=== PATIENT | male | born 1945 | race Caucasian/White ===

== ENCOUNTER 2017-12-16 08:18 | Outpatient (RCR) | payer MEDICARE, OTHER ==
[2015-03-16 17:08] VITALS: Ht 177.8 cm; Wt 83.9 kg
[2017-09-23 08:23] VITALS: BP 128/77
[2017-09-23 08:30] LABS: PLATELET COUNT, AUTOMATED 128 K/uL (150-450)
--- NOTE | 2017-09-23 11:28 | RADIOLOGY IMAGING REPORT ---
FACILITY: [facility] PATIENT NAME: Paulie Oakes : 1945 MR: [id number] V: [id number] EXAM DATE: ORDERING PHYSICIAN: TANA QUINTANILLA TECHNOLOGIST: Location: [facility] [place] Patient: Paulie Oakes : 1945 Visit/Account:[id number] Date of Sevice: 09/23/2017 ABDOMEN W W/O CONTRAST Provided history: Colon cancer Additional pertinent history: none TECHNIQUE: Multi-planar and multi-sequence imaging of the abdomen was performed without and with int ravenous contrast. Contrast dose: 15 mL Multihance intravenously . Additional focused sequences: none COMPARISON STUDIES: MRI 07/24/[address] 07/17/17 FINDINGS: Lower chest: Negative Liver/biliary: There is a poorly defined area of moderate hyperenhancement in the hepatic arterial ph ase subcapsular margin of the posterior right lobe involving segment 7. This is a very similar appear ance though perhaps slightly progressive from the last MRI. In retrospect, I see no abnormal activity at this level on the PET scan. Directly anterior to this lesion, there is a nonmass-like area of hyp oenhancement and adjacent metallic artifacts that is stable from the prior MRI. Retrospect, there is mild hyper metabolic activity this location on the PET scan and are presumably appearance now is post treatment in origin. Outside of these 2 lesions, I see no additional evidence of metastatic disease in the liver currently. Pancreas: Negative Spleen: Negative Adrenal glands: Negative Kidneys/proximal ureter/retroperitoneum: Benign-appearing cysts both kidneys are unchanged from prior . One, however, in the lower pole on the left demonstrates complex features with thick internal septa tions and mild T1 hyperintensity before gadolinium. Today's study is more difficult to interpret due to breathing motion artifact but the lesion appears to be stable in size dating back to MR of 5 and therefore likely benign. A partially collapsed cystic structure projects laterally from the lower pole right kidney, stable. I t demonstrates low-level peripheral wall enhancement. Bowel/peritoneum/mesenteries: Negative Vessels: Negative Musculoskeletal/body wall: Negative Lymph nodes: negative IMPRESSION: 1. Slightly enlarging hyperenhancing lesion segment 7 right lobe of the liver with features concernin g for a metastatic lesion. 2. Stable segment 8 lesion with features suggesting benign post repair changes. 3. Complex cysts of the kidneys are defined above. Though likely benign, they warrant follow-up surve illance. Report Dictated By: Eder Dutta MD at 09/23/2017 11:01 AM Report E-Signed By: Eder Dutta MD at 09/23/2017 11:23 AM WSN:[id number]
[2017-09-23] MEDS: LIDOCAINE/SOD BICARB 8.4% SYR ID PRN (12:54)
[2017-09-23] MEDS: HEPARIN FLSH (PORT) 500 UN/5ML IVP PRN (12:55)
[2017-09-26 13:39] VITALS: BP 186/85
--- NOTE | 2017-09-26 14:16 | Oncology Note ---
EVENT DATE: September 26, 2017 DIAGNOSES 1. 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 2. Complex cyst of both kidneys. 3. Hypertension. 4. Gout. 5. Glaucoma. CHIEF COMPLAINT Patient is here today for followup of his metastatic cecal adenocarcinoma. HEMATOLOGY/ONCOLOGY HISTORY PRESENTATION Abnormal screening colonoscopy done by Dr. Damon, who found a large tumor in the right colon, suggestive of malignancy. PROCEDURE Right hemicolectomy done on March 15, 2015. PATHOLOGY Positive for invasive moderately differentiated colonic adenocarcinoma. Fifteen lymph nodes were negative for metastasis. Immuno stains for microsatellite instability were PMS2, MSH2, MSH6 and MLH1 all came back positive. Oncotype DX colon cancer assay showed a recurrence score result of 22. Oncotype DX colon cancer assay showed a recurrence score result of 22. STAGING WORKUP 1. CT of abdomen and pelvis with contrast done on March 09, 2015 showed markedly thickened cecum and ascending colon with irregularity consistent with colon cancer. There were small shotty retroperitoneal lymph nodes present. Bilateral renal cysts in addition to bilateral complex masses in both kidneys. 2. MRI of the abdomen with/without contrast done March 10, 2015 showed complex mass, lower pole of right kidney, consistent with Bosniak type III cyst. Another complex in the lower pole of the left kidney represented a Bosniak type III cyst. There was a large mass involving the cecum extending into the approximate ascending colon, consistent with history of colon cancer. TREATMENT The patient started chemotherapy with FOLFOX pending surgery on July 23, 2016. The patient had black/partial hepatectomy with intraoperative ultrasound and microwave ablation on October 22, 2016 and pathology came back positive for the segment for hepatic resection for adenocarcinoma of the colon. The patient started adjuvant chemotherapy with FOLFOX chemotherapy on December 25, 2016. The patient completed four courses of adjuvant chemotherapy with FOLFOX on February 06, 2017. The patient completed four courses of FOLFOX in adjuvant setting after his surgery on February 05, 2014. HISTORY OF PRESENT ILLNESS The patient is a 71-year-old male who was initially diagnosed with stage II (T3 N0 M0) cecal adenocarcinoma status post right hemicolectomy on March 15, 2015 with negative lymph nodes for metastasis. Oncotype DX testing of the colon mass showed recurrent score of 22. Patient decided not to take adjuvant chemotherapy. CEA during surveillance increased from 2.3 to 5.3, and PET CT scan done June 06, 2017 showed 1.3 cm hypodense, hypermetabolic lesion in the anterior aspect of the right hepatic lobe, concerning for metastasis. There was a small hypermetabolic focus of the left hilum suspicious for lymphadenopathy which could be metabolically reactive. There was also a 1.5 cm hypodense nodule in the left thyroid with SUV 2.8. Patient had partial hepatectomy with intraoperative ultrasound microwave ablation done October 22, 2016. Segment 4 of the hepatic resection did reveal the presence of adenocarcinoma consistent with colonic primary. Patient received 4 cycles of adjuvant chemotherapy of FOLFOX between December 10, 2016 through February 05, 2017. His CEA showed response to the treatment. It dropped from 5.4 to 4.6 to 3.1 and then to 3. On March 25, [address] chest, abdomen and pelvis, which came back positive for hypoattenuating area in the left lobe of the liver. So the patient had a PET scan on April 10, 2017, which showed persistent activity in the surgical bed, which is nearly equal to the preoperative metastatic activity concerning for possible metastasis of cervical inflammatory changes. Patient had a PET CT scan done on July 17, 2017, which came back negative for metastasis, but MRI of the abdomen on July 24, 2017 showed two masses which with arterial enhancing in the right lobe of the liver, the largest 2.8 cm. Given the discrepancy between the PET scan and the MRI of the abdomen, Dr Millard recommended observation with serial imaging to assess stability. Paulie presents today for follow-up. He has been doing well and denies any new complaints. He has chronic right hip pain, which is likely due to arthritis. He denies weight loss, RUQ abdominal pain, shortness of breath, back/bone pain. PAST MEDICAL HISTORY 1. Colon cancer. 2. Hypertension. 3. Gout. 4. Glaucoma. PAST SURGICAL HISTORY 1. Multiple eye surgeries for glaucoma. 2. Tonsillectomy. 3. Right hemicolectomy done on March 15, 2015. 4. Black/partial hepatectomy with intraoperative ultrasound and microwave ablation done on October 22, 2016. SOCIAL HISTORY The patient is . He has two sons. He is retired. Denies any abuse of tobacco, alcohol or drugs. FAMILY HISTORY Maternal aunt had breast cancer in her late 60s. Maternal cousin had small cell lung cancer. CURRENT MEDICATIONS 1. Multivitamins one tablet daily. 2. Betimol eye drops daily. 3. Lumigan 2.5 mL drops at bedtime. 4. Hyzaar 50/12.5 mg tablet daily. 5. Allopurinol 300 mg daily. 6. Cardura 4 mg at bedtime. 7. Verapamil SR 240 mg daily. ALLERGIES No known drug allergies. REVIEW OF SYSTEMS CONSTITUTIONAL: No appetite or weight change. No fever, chills or sweating. No recent infection. HEENT: Ears: No tinnitus or hearing problem. Nose: No nasal discharge or epistaxis. Throat: No sore throat or mouth ulcers. Eyes: No diplopia or visual changes. RESPIRATORY: The patient has cough with expectoration. CARDIOVASCULAR: No chest pain, orthopnea, or paroxysmal nocturnal dyspnea (PND) . No edema. No palpitations. GASTROINTESTINAL: He has diarrhea sometimes. GENITOURINARY: No hematuria or dysuria. MUSCULOSKELETAL: He has pain in the right leg. NEUROLOGICAL: His tingling and numbness is getting better. HEMATOLOGIC/LYMPHATIC: He is weak, tired and fatigued. No enlarged lymph nodes. SKIN: No skin rash or lumps. PSYCHIATRIC: No anxiety or depression. PHYSICAL EXAMINATION GENERAL: Looks stable. Well-developed, well-nourished, and in no acute distress. VITAL SIGNS: Blood pressure 186/85, pulse 48 per minute, respirations 16 per minute, temperature 96.2, pulse ox 93% on room air. HEENT: Head: Atraumatic. No sinus tenderness to palpation. Eyes: No icterus or conjunctivitis. Mouth and throat: No oral thrush or mucositis. NECK: Supple. No cervical or supraclavicular lymphadenopathy. LUNGS: Clear to auscultation and percussion bilaterally. HEART: Regular rate and rhythm. No gallops, murmurs, clicks or rubs. ABDOMEN: Soft and lax. No tenderness. No hepatosplenomegaly. No masses. EXTREMITIES: No cyanosis, clubbing or edema. LYMPHATICS: No peripheral lymphadenopathy. NEUROLOGICAL: Conscious, alert and oriented times three. No focal motor or sensory deficits. PSYCHIATRIC: Mood and affect appear normal. SKIN: No skin rash, bruise or purpuric eruption. DIAGNOSTIC DATA CBC showed a white count of 4.4, hemoglobin 13.9, hematocrit 39.6, platelets 128 ,000. Chem panel totally normal. CEA is 2.6, which is down from 3.1, which was down from 4.6, which was down from 5.4. PET CT scan done on July 17, 2017 was negative for metastasis or residual disease. MRI of the abdomen done on July 24, 2017 showed two enhancing masses in the right lobe of the liver , the largest 2.8 cm without enhancement, suspicious for metastasis. MRI abdomen on 09/23/2017 showed poorly defined area in segment 7 of right lobe, with very similar appearance, though perhaps slightly progressed; directly anterior is a stable area, with no additional evidence of metastatic disease. ASSESSMENT 1. Recurrent cecal adenocarcinoma. Patient was initially diagnosed with stage II (T3 N0 M0) cecal adenocarcinoma status post right hemicolectomy March 15, 2015 with negative lymph nodes for metastasis. Oncotype DX testing of the colon mass showed recurrent score of 22. Patient decided not to take adjuvant chemotherapy. CEA during surveillance increased from 2.3 to 5.3, and PET CT scan done June 06, 2017 showed 1.3 cm hypodense, hypermetabolic lesion in the anterior aspect of the right hepatic lobe, concerning for metastasis. There was a small hypermetabolic focus of the left hilum suspicious for lymphadenopathy which could be metabolically reactive. There was also a 1.5 cm hypodense nodule in the left thyroid with SUV 2.8. Patient had partial hepatectomy with intraoperative ultrasound microwave ablation done October 22, 2016. Segment 4 of the hepatic resection did reveal the presence of adenocarcinoma consistent with colonic primary. Patient received 4 cycles of adjuvant chemotherapy of FOLFOX between December 10, 2016 through February 05, 2017. His CEA showed response to the treatment. It dropped from 5.4 to 4.6 to 3.1 and currently it is 3. On March 25, [address] chest, abdomen and pelvis, which came back positive for hypoattenuating area in the left lobe of the liver. So the patient had a PET scan on April 10, 2017, which showed persistent activity in the surgical bed, which is nearly equal to the preoperative metastatic activity concerning for possible metastasis of cervical inflammatory changes. Patient had a PET CT scan done on July 17, 2017, which came back negative for metastasis, but MRI of the abdomen on July showed two masses which with arterial enhancing in the right lobe of the liver, the largest 2.8 cm. Given the discrepancy between the PET scan and the MRI of the abdomen Dr Millard opted to continue with surveillance and repeat imaging in short interval. MRI on 09/23/2017 showed similar or perhaps slightly increased area in segment 7, stable area in segment 8 and no new areas of metastatic disease. I reviewed these results with the patient and his . Given his asymptomatic nature, normal labs, decreasing CEA, and essentially similar findings on MRI, there is not definitive evidence of progression of disease. I recommended to continue with surveillance and repeat imaging in 2-3 months, to assess stability. He will return for follow-up in 2-3 months with CBC , CMP, CEA. He expressed understanding of our discussion and is agreeable with the plan. 2. Gout, on treatment. 3. Chemotherapy-induced thrombocytopenia. Current platelet count 128,000 today. I will continue to monitor. 4. Mild hypokalemia. K 3.5 today. This is likely due to anti-hypertensive meds. He will continue with SM supplement. PLAN 1. There is no definitive evidence of progression of disease; I will continue with surveillance 2. Repeat MRI abdomen in 2-3 months 3. Patient to return in 2-3 months with CBC, chemistry panel, CEA and MRI of the liver. 4. Patient is to contact us for any new concerns or complaints. 5. Continue potassium supplementation ELADIO MCCAIN MD Sep 26, 2017 14:16
[2017-10-21] MEDS: LIDOCAINE/SOD BICARB 8.4% SYR ID PRN (08:30)
[2017-10-21] MEDS: HEPARIN FLSH (PORT) 500 UN/5ML IVP PRN (08:30)
[2017-10-21 08:35] VITALS: BP 161/85
[2017-10-31 12:29] VITALS: BP 181/82
--- NOTE | 2017-10-31 13:04 | ONC Progress Note - NP.Halsey ---
Patient History Date of Service Oct 31, 2017 Reason For Visit/HPI Patient is seen in the clinic today for concern of sinus congestion, cough and possible fever with night sweats over the last 5 days. Patient's blood pressure is elevated today but he has been taking Robitussin cough syrup. His abdomen is tender thought to be related from all the coughing. His is concerned that he possibly is getting pneumonia. He is more weak and fatigued over the last 5 days. He denies any diarrhea or constipation. He has no shortness of breath. She was unable to get into primary care provider prior to the holidays and has recently been seen in the clinic for follow-up of his colon cancer with liver metastasis. Problem List (1) Pneumonia (2) Chemotherapy-induced nausea (3) Hypokalemia (4) Metastatic colon cancer to liver (5) Cancer of right colon Oncology History DIAGNOSES 1. 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 2. Complex cyst of both kidneys. 3. Hypertension. 4. Gout. 5. Glaucoma. HEMATOLOGY/ONCOLOGY HISTORY PRESENTATION Abnormal screening colonoscopy done by Dr. Garcia, who found a large tumor in the right colon, suggestive of malignancy. PROCEDURE Right hemicolectomy done on March 15, 2015. PATHOLOGY Positive for invasive moderately differentiated colonic adenocarcinoma. Fifteen lymph nodes were negative for metastasis. Immuno stains for microsatellite instability were PMS2, MSH2, MSH6 and MLH1 all came back positive. Oncotype DX colon cancer assay showed a recurrence score result of 22. Oncotype DX colon cancer assay showed a recurrence score result of 22. STAGING WORKUP 1. CT of abdomen and pelvis with contrast done on March 09, 2015 showed markedly thickened cecum and ascending colon with irregularity consistent with colon cancer. There were small shotty retroperitoneal lymph nodes present. Bilateral renal cysts in addition to bilateral complex masses in both kidneys. 2. MRI of the abdomen with/without contrast done March 10, 2015 showed complex mass, lower pole of right kidney, consistent with Bosniak type III cyst. Another complex in the lower pole of the left kidney represented a Bosniak type III cyst. There was a large mass involving the cecum extending into the approximate ascending colon, consistent with history of colon cancer. TREATMENT The patient started chemotherapy with FOLFOX pending surgery on July 23, 2016. The patient had black/partial hepatectomy with intraoperative ultrasound and microwave ablation on October 22, 2016 and pathology came back positive for the segment for hepatic resection for adenocarcinoma of the colon. The patient started adjuvant chemotherapy with FOLFOX chemotherapy on December 25, 2016. The patient completed four courses of adjuvant chemotherapy with FOLFOX on February 06, 2017. The patient completed four courses of FOLFOX in adjuvant setting after his surgery on February 05, 2014. Medical History Family History: FH: CVA (cerebrovascular accident) MOTHER, , Age:90 FH: diabetes mellitus FATHER, , Age:77 FH: heart disease FATHER, , Age:77 FH: mitral valve repair MOTHER, , Age:90 Psychosocial History Smoking History: Yes (SMOKED 2 PPD FOR 20 YEARS. QUIT 1977) Smoking Status: Former Smoker Exposure to Second Hand Smoke?: Yes (IN THE PAST. NONE NOW) Medications and Allergies Active Scripts Levofloxacin 500 Mg Tab (LEVAQUIN 500 MG TAB) 500 Mg Tablet, 500 MG PO DAILY, # 5 TAB Prov:TANA QUINTANILLAP-BC, ONC 10/31/17 Fluticasone Prop 50 Mcg Ns (FLONASE 50 MCG NS) 16 Gm Francis.susp, 2 SPRAYS NA QDAY for 30 Days, #3 BOT 3 Refills Prov:NORRIS MILLER JR, MD 10/15/17 Potassium Chloride (Potassium Chloride) 20 Meq Tablet.er, 20 MEQ PO DAILY, #60 TAB 6 Refills Prov:TANA QUINTANILLA MIXING MACHINE OPERATOR-BC, ONC 08/22/17 Losartan Potassium (LOSARTAN POTASSIUM) 50 Mg Tablet, 50 MG PO QDAY, #90 TAB 2 Refills Prov:CHYNA GARCIA MD 06/17/17 Reported Medications Oxygen (OXYGEN) Inha, 2 L INH HS, L 05/16/17 Timolol Maleate/Pf (TIMOPTIC 0.25% OCUDOSE DROP) 1 Each Droperette, 1 EACH OP Left eye only 05/16/17 Ibuprofen (IBUPROFEN) 200 Mg Capsule, 1-2 CAP PO Q6H Y for PAIN/HEADACHE, CAPSULE 03/08/16 Bimatoprost (LUMIGAN) 2.5 Ml Drops, 2.5 ML OP QHS 03/02/15 Allopurinol (ZYLOPRIM) 300 Mg Tablet, 300 MG PO QDAY, TAB TAKE 1 TABLET BY MOUTH EVERY DAY 03/02/15 Doxazosin Mesylate (CARDURA) 4 Mg Tablet, 4 MG PO QHS 03/02/15 Verapamil Hcl (CALAN SR) 240 Mg Tablet.er, 240 MG PO HS 03/02/15 Allergies: Coded Allergies: No Known Drug Allergies (Verified , 03/02/15) Review of System/Physical Exam Review of Systems All Systems Reviewed/Normal: Yes, Except as Noted Constitutional: Positive for Appetite/Weight Change (reports weight gain) Respiratory: Positive for Cough, Positive for Expectoration, Positive for Wheezing HEENT: Nasal Discharge (thick colored discharge with nasal congestion), Sore Throat Hematologic: Positive for Fatigue Physical Exam Vital Signs Temperature: 96.9 Pulse: 53 BP Systolic: 181 BP Diastolic: 82 Respiratory Rate: 16 O2 SAT: 91 O2 Delivery: Room Air Height (inches) 70.00 Weight lb: 178 Weight oz: 4.0 Weight Kg (Ugo): [id number] Pain: 0 ECOG Score: 1 General: Stable, Well Developed, Well Nourished, Not In Acute Distress HEENT: No Trauma, No Icterus, No Mucositis, Sinus Tenderness (maxillary tenderness with palpation), Other (posterior pharynx with mild erythema) Heart: Regular Rate, Regular Rhythm Abdomen: Soft and Nontender, No Hepatosplenomegaly Extremities: No Cyanosis, No Edema Lymphadenopathy: No Cervical, No Subclavicular Psychiatric: Mood appears normal, Affect appears normal Skin: No Skin Rashes, No Bruising, No Purpura Diagnostic Studies Diagnostic Studies Laboratory Laboratory Tests 09/23/17 08:20 Laboratory Tests 09/23/17 08:20: White Blood Count 4.4, Red Blood Count 4.16, Hemoglobin 13.9, Hematocrit 39.6, Mean Corpuscular Volume 95.3, Mean Corpuscular Hemoglobin 33.6, Mean Corpuscular Hemoglobin Concent 35.2, Red Cell Distribution Width 13.6, Platelet Count 128, Mean Platelet Volume 9.3, Neutrophils (%) (Auto) 66.6, Lymphocytes (% ) (Auto) 23.5, Monocytes (%) (Auto) 7.7, Eosinophils (%) (Auto) 1.4, Basophils ( %) (Auto) 0.8, Nucleated RBC Relative Count (auto) 0.1, Neutrophils # (Auto) 2.9 , Lymphocytes # (Auto) 1.0, Monocytes # (Auto) 0.3, Eosinophils # (Auto) 0.1, Basophils # (Auto) 0.0, Nucleated RBC Absolute Count (auto) 0.00, Sodium Level 142, Potassium Level 3.5, Chloride Level 107, Carbon Dioxide Level 25, Blood Urea Nitrogen 13, Creatinine 0.90, Glomerular Filtration Rate Calc > 60.0, Random Glucose 114, Calcium Level 9.1, Total Bilirubin 0.9, Aspartate Amino Transf (AST/SGOT) 27, Alanine Aminotransferase (ALT/SGPT) 32, Alkaline Phosphatase 111, Total Protein 6.6, Albumin 3.5, Carcinoembryonic Antigen 2.6 Assessment and Plan Assessment & Plan Patient is seen in the clinic today for upper respiratory infection with a prior history of pneumonia and chemotherapy. Patient initially started with a sore throat and sinus congestion and now has developed a cough, wheezing and night sweats. He has increased fatigue and generally does not feel well. Patient was offered to have a chest x-ray done today but would rather not do it at this time. He will be started on Levaquin 500 mg daily 5 days and if no improvement will follow up in the clinic and a chest x-ray will be completed at that time. Patient and spouse agreed to the plan of care. Copied from previous dictation 1. Recurrent cecal adenocarcinoma. Patient was initially diagnosed with stage II (T3 N0 M0) cecal adenocarcinoma status post right hemicolectomy March 15, 2015 with negative lymph nodes for metastasis. Oncotype DX testing of the colon mass showed recurrent score of 22. Patient decided not to take adjuvant chemotherapy. CEA during surveillance increased from 2.3 to 5.3, and PET CT scan done June 06, 2017 showed 1.3 cm hypodense, hypermetabolic lesion in the anterior aspect of the right hepatic lobe, concerning for metastasis. There was a small hypermetabolic focus of the left hilum suspicious for lymphadenopathy which could be metabolically reactive. There was also a 1.5 cm hypodense nodule in the left thyroid with SUV 2.8. Patient had partial hepatectomy with intraoperative ultrasound microwave ablation done October 22, 2016. Segment 4 of the hepatic resection did reveal the presence of adenocarcinoma consistent with colonic primary. Patient received 4 cycles of adjuvant chemotherapy of FOLFOX between December 10, 2016 through February 05, 2017. His CEA showed response to the treatment. It dropped from 5.4 to 4.6 to 3.1 and currently it is 3. On March 25, [address] chest, abdomen and pelvis, which came back positive for hypoattenuating area in the left lobe of the liver. So the patient had a PET scan on April 10, 2017, which showed persistent activity in the surgical bed, which is nearly equal to the preoperative metastatic activity concerning for possible metastasis of cervical inflammatory changes. Patient had a PET CT scan done on July 17, 2017, which came back negative for metastasis, but MRI of the abdomen on July showed two masses which with arterial enhancing in the right lobe of the liver, the largest 2.8 cm. Given the discrepancy between the PET scan and the MRI of the abdomen Dr Millard opted to continue with surveillance and repeat imaging in short interval. MRI on 09/23/2017 showed similar or perhaps slightly increased area in segment 7, stable area in segment 8 and no new areas of metastatic disease. I reviewed these results with the patient and his . Given his asymptomatic nature, normal labs, decreasing CEA, and essentially similar findings on MRI, there is not definitive evidence of progression of disease. I recommended to continue with surveillance and repeat imaging in 2-3 months, to assess stability. He will return for follow-up in 2-3 months with CBC , CMP, CEA. He expressed understanding of our discussion and is agreeable with the plan. 2. Gout, on treatment. 3. Chemotherapy-induced thrombocytopenia. Current platelet count 128,000 today. I will continue to monitor. 4. Mild hypokalemia. K 3.5 today. This is likely due to anti-hypertensive meds. He will continue with SM supplement. PLAN 1. There is no definitive evidence of progression of disease; I will continue with surveillance 2. Repeat MRI abdomen in 2-3 months 3. Patient to return in 2-3 months with CBC, chemistry panel, CEA and MRI of the liver. 4. Patient is to contact us for any new concerns or complaints. 5. Continue potassium supplementation I personally spent a total of [] minutes. Of that [] minutes was counseling/ coordination of patient's care. See my note above for details. TANA QUINTANILLA MIXING MACHINE OPERATOR-BC, ONC Oct 31, 2017 13:04
[2017-11-18 08:39] VITALS: BP 183/93
[2017-11-18] MEDS: HEPARIN FLSH (PORT) 500 UN/5ML IVP PRN (08:51)
[2017-11-18] MEDS: LIDOCAINE/SOD BICARB 8.4% SYR ID PRN (08:53)
[~2017-12-16] VITALS: Ht 177.8 cm; Wt 83.9 kg
[~2017-12-16 08:18] MED LIST: ALLO-119 PO; ALLOPURINOL; ALTEPLASE RECOMB 2 MG VIAL IVP PRN; BACL-1 PO; BENICAR HCT; BIMA2.5D5 OP; CALAN; CARDURA; CEFU500T10 PO; CORED RIGHT EAR; DEXTROSE 5%(*) 100 ML BAG 100 ML IVPB PRN; DIPH-911 PO; DOXA4TAB57 PO; DOXA4TAB58 PO; DOXA8TAB11 PO; FLUT16SP19; GADOBENATE 529MG/1ML 15ML VIAL IVP ONE; GLAUCOMA EYE DROPS; IBUP200C71 PO; INDO25OR3 PO; KET10 PO; KETO5DRO50 OP; LEVO-85 PO; LEVO500T83 PO; LEVO750T44 PO; LOR5/325 PO; LORA-1455 PO; LOSA-32 PO; LOSA100T67 PO; LOSA50TA72 PO; METR-1 PO; MULT1TAB64 PO; NS(*) 0.9% 100 ML BAG 100 ML IVPB PRN; NS(*) 0.9% 500 ML BAG 500 ML IV PRN; ONDA8TAB91 PO; OXYGENHOME INH; POTA10CA40 PO; POTA20TA10 PO; PRED15SO5 OU; PRED5DRO34 OP; TIMO1DRO8 OP; TIMO5DRO3 OP; VERA240T84 PO; WATER STERILE 10 ML VIAL IVP PRN; [UNRECOGNIZED DRUG - CODE] GT
[2017-12-16] MEDS: HEPARIN FLSH (PORT) 500 UN/5ML IVP PRN (08:31)
[2017-12-16] MEDS: LIDOCAINE/SOD BICARB 8.4% SYR ID PRN (08:32)
[2017-12-16 08:50] LABS: PLATELET COUNT, AUTOMATED 99 K/uL (150-450)
[2017-12-16] MEDS ORDERED: GADOBENATE 529MG/1ML 15ML VIAL IVP ONE (09:18)
[2017-12-16] MEDS ORDERED: NS 0.9% 20 ML SDV 40 ML ONE (09:18)
[2017-12-16 10:53] VITALS: BP 118/82
--- NOTE | 2017-12-16 15:32 | RADIOLOGY IMAGING REPORT ---
FACILITY: [facility] - [place] PATIENT NAME: Paulie Oakes : 1945 MR: [id number] V: [id number] EXAM DATE: ORDERING PHYSICIAN: TANA QUINTANILLA TECHNOLOGIST: Location: [facility] Patient: Paulie Oakes : 1945 Visit/Account:[id number] Date of Sevice: 12/16/2017 ABDOMEN MR W W/O CONTRAST HISTORY: Colon cancer ADDITIONAL HISTORY: None. TECHNIQUE: TECHNIQUE: Multiplanar multisequence magnetic resonance imaging of the abdomen with and without intravenous contrast. CONTRAST: 15 mL of MultiHance COMPARISON: September 23, 2017 FINDINGS: Visualized lung bases: Small amount linear stranding in the right lower lobe which may represent scar ring or atelectasis Liver: Again noted is a poorly defined area of moderate enhancement seen in the arterial phase in the subcapsular portion posterior right lobe the liver involving segment seven. Within the limitations of the motion artifact this appears to be relatively unchanged in size. There is a small adjacent sa tellite lesion with contrast enhancement also appears relatively unchanged. Along the anterior aspec t of the right lobe is the area of hypointensity with adjacent metallic artifacts stable from the aparna or MR likely posttreatment in origin. No new hepatic lesions are seen. Gallbladder: Cholecystectomy Bile ducts: Nondistended and unremarkable. Spleen: Negative. Adrenal glands: Negative. Pancreas: Extremely atrophic Kidneys: Bilateral renal cysts are again seen. The partially collapsed cyst along the inferior later al aspect of the right kidney with mild enhancement of the wall is relatively unchanged in size. The complex cystic mass lower pole of the left kidney is also relatively unchanged in size given the zamora itation of respiratory motion. Some are to the prior examination a thick internal septations and mil d T2 hyperintensity prior to contrast administration. Vessels/spaces/nodes: No bulky adenopathy or ascities. Visualized GI: Grossly unremarkable. Bones/soft tissues: Unremarkable. IMPRESSION: The poorly defined area of moderate enhancement in the subcapsular posterior right lobe the liver wit h small solid lesion are unchanged in size when compared to the prior study although still concerning for metastases Probable postoperative changes in the anterior right lobe the liver Bilateral renal cysts some which appear complex appear relatively unchanged when compared the prior s tudy given the limitations of respiratory motion. Continued follow-up however recommended Small amount linear stranding in the right lower lobe may represent scarring or atelectasis Report Dictated By: Micki Barahona MD at 12/16/2017 1:52 PM Report E-Signed By: Micki Barahona MD at 12/16/2017 3:27 PM CIARAN:CYNTHIA
== END 2017-12-22 ==
LOC: SPU 08:18
PROVIDERS: ATTEND Nurse Practitioner Family
DX: Z85.038 Personal history of other malignant neoplasm of large intestine (principal); Z85.05 Personal history of malignant neoplasm of liver; M10.9 Gout, unspecified; D69.59 Other secondary thrombocytopenia; E87.6 Hypokalemia; I10 Essential (primary) hypertension; Z79.899 Other long term (current) drug therapy; R53.1 Weakness; R53.83 Other fatigue; R05 Cough; Z92.21 Personal history of antineoplastic chemotherapy; N28.1 Cyst of kidney, acquired; J06.9 Acute upper respiratory infection, unspecified; Z90.49 Acquired absence of other specified parts of digestive tract; R91.8 Other nonspecific abnormal finding of lung field
CPT/HCPCS: 36591; 74183; 82378; 85025; 96523; A9577; G0463; J1642; J7050; 82040; 82247; 82310; 82374; 82435; 82565; 82947; 84075; 84132; 84155; 84295; 84450; 84460; 84520; 99212

== ENCOUNTER → 2018-02-04 | Outpatient (CLI) | payer MEDICARE, OTHER ==
[2015-03-16 17:08] VITALS: BMI 23.2
[~2018-02-04] MED LIST changes: -ALTEPLASE RECOMB 2 MG VIAL IVP PRN; -DEXTROSE 5%(*) 100 ML BAG 100 ML IVPB PRN; -GADOBENATE 529MG/1ML 15ML VIAL IVP ONE; -NS(*) 0.9% 100 ML BAG 100 ML IVPB PRN; -NS(*) 0.9% 500 ML BAG 500 ML IV PRN; +TRIA1CAP81 PO; -WATER STERILE 10 ML VIAL IVP PRN
[2018-02-04 17:00] LABS: PLATELET COUNT, AUTOMATED 165 K/uL (150-450)
--- NOTE | 2018-02-04 17:21 | EKG ---
FACILITY: [facility] PATIENT NAME: RUBENS COURTNEY : [id number] MR: [id number] V: [id number] EXAM DATE: ORDERING PHYSICIAN: RAY GRIMM TECHNOLOGIST: DANIELLE Miranda Reason : LOW PULSE Blood Pressure : / mmHG Vent. Rate : 042 BPM Atrial Rate : 042 BPM P-R Int : 190 ms QRS Dur : 160 ms QT Int : 500 ms P-R-T Axes : -02 016 004 degrees QTc Int : 417 ms Marked sinus bradycardia Right bundle branch block Abnormal ECG When compared with ECG of 09-MAR-2015 14:14, premature atrial complexes are no longer present Referred By: Confirmed By:
== END ==
LOC: LAB 16:38
PROVIDERS: ATTEND Internal Medicine
DX: R00.1 Bradycardia, unspecified (principal); I45.10 Unspecified right bundle-branch block; R94.31 Abnormal electrocardiogram [ECG] [EKG]; I10 Essential (primary) hypertension; E87.6 Hypokalemia; C18.2 Malignant neoplasm of ascending colon; R39.198 Other difficulties with micturition
CPT/HCPCS: 36415; 81001; 82040; 82247; 82310; 82374; 82435; 82565; 82947; 83735; 84075; 84132; 84155; 84295; 84443; 84450; 84460; 84520; 85025

== ENCOUNTER → 2018-03-10 | Outpatient (CLI) | payer MEDICARE, OTHER ==
[2015-03-16 17:08] VITALS: BMI 23.2
== END ==
LOC: LAB 07:44
PROVIDERS: ATTEND Internal Medicine
DX: I10 Essential (primary) hypertension (principal)
CPT/HCPCS: 36415; 82310; 82374; 82435; 82565; 82947; 84132; 84295; 84520

== ENCOUNTER 2018-03-31 08:10 | Outpatient (RCR) | payer MEDICARE, OTHER ==
[2015-03-16 17:08] VITALS: Wt 83.9 kg
[2018-01-03 10:30] VITALS: BP 135/76
--- NOTE | 2018-01-03 17:36 | ONCOLOGY FOLLOW UP NOTE ---
EVENT DATE: January 03, 2018 DIAGNOSES 1. 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 2. Complex cyst of both kidneys. 3. Hypertension. 4. Gout. 5. Glaucoma. CHIEF COMPLAINT Patient is here today for followup of his metastatic cecal adenocarcinoma. CHIEF COMPLAINT Patient is here today for followup of his recurrent metastatic colon cancer. ONCOLOGY HISTORY The patient is a 71-year-old male. The patient is doing fine currently. He has gained some weight. He still has sweating. He has also cough and runny nose, and he has hiccups lately. The patient has been evaluated at the [facility] [place] for his recurrent colon cancer and he is under evaluation currently. He was found to have a mass in the pancreas lately, and the patient is going to have EUS for that mass soon as well as repeat MRI and biopsy of the liver with marker placement. PRESENTATION Abnormal screening colonoscopy done by Dr. Damon, who found a large tumor in the right colon, suggestive of malignancy. PROCEDURE Right hemicolectomy done on March 15, 2015. PATHOLOGY Positive for invasive moderately differentiated colonic adenocarcinoma. Fifteen lymph nodes were negative for metastasis. Immuno stains for microsatellite instability were PMS2, MSH2, MSH6 and MLH1 all came back positive. Oncotype DX colon cancer assay showed a recurrence score result of 22. Oncotype DX colon cancer assay showed a recurrence score result of 22. STAGING WORKUP 1. CT of abdomen and pelvis with contrast done on March 09, 2015 showed markedly thickened cecum and ascending colon with irregularity consistent with colon cancer. There were small shotty retroperitoneal lymph nodes present. Bilateral renal cysts in addition to bilateral complex masses in both kidneys. 2. MRI of the abdomen with/without contrast done March 10, 2015 showed complex mass, lower pole of right kidney, consistent with Bosniak type III cyst. Another complex in the lower pole of the left kidney represented a Bosniak type III cyst. There was a large mass involving the cecum extending into the approximate ascending colon, consistent with history of colon cancer. TREATMENT The patient started chemotherapy with FOLFOX pending surgery on July 23, 2016. The patient had black/partial hepatectomy with intraoperative ultrasound and microwave ablation on October 22, 2016 and pathology came back positive for the segment for hepatic resection for adenocarcinoma of the colon. The patient started adjuvant chemotherapy with FOLFOX chemotherapy on December 25, 2016. The patient completed four courses of adjuvant chemotherapy with FOLFOX on February 06, 2017. The patient completed four courses of FOLFOX in adjuvant setting after his surgery on February 05, 2014. HISTORY OF PRESENT ILLNESS Patient is here today for followup of his recurrent metastatic colon cancer. He is doing fine currently, except for cough with expectoration and occasional fatigue. PAST MEDICAL HISTORY 1. Colon cancer. 2. Hypertension. 3. Gout. 4. Glaucoma. PAST SURGICAL HISTORY 1. Multiple eye surgeries for glaucoma. 2. Tonsillectomy. 3. Right hemicolectomy done on March 15, 2015. 4. Black/partial hepatectomy with intraoperative ultrasound and microwave ablation done on October 22, 2016. SOCIAL HISTORY The patient is . He has two sons. He is retired. Denies any abuse of tobacco, alcohol or drugs. FAMILY HISTORY Maternal aunt had breast cancer in her late 60s. Maternal cousin had small cell lung cancer. CURRENT MEDICATIONS 1. Multivitamins one tablet daily. 2. Betimol eye drops daily. 3. Lumigan 2.5 mL drops at bedtime. 4. Hyzaar 50/12.5 mg tablet daily. 5. Allopurinol 300 mg daily. 6. Cardura 4 mg at bedtime. 7. Verapamil SR 240 mg daily. ALLERGIES No known drug allergies. REVIEW OF SYSTEMS CONSTITUTIONAL: No appetite or weight change. No fever, chills or sweating. No recent infection. HEENT: Ears: No tinnitus or hearing problem. Nose: No nasal discharge or epistaxis. Throat: No sore throat or mouth ulcers. Eyes: No diplopia or visual changes. RESPIRATORY: The patient has cough with expectoration. CARDIOVASCULAR: No chest pain, orthopnea, or paroxysmal nocturnal dyspnea (PND) . No edema. No palpitations. GASTROINTESTINAL: He has diarrhea sometimes. GENITOURINARY: No hematuria or dysuria. MUSCULOSKELETAL: He has pain in the right leg. NEUROLOGICAL: His tingling and numbness is getting better. HEMATOLOGIC/LYMPHATIC: He has occasional fatigue. No enlarged lymph nodes. SKIN: No skin rash or lumps. PSYCHIATRIC: No anxiety or depression. PHYSICAL EXAMINATION GENERAL: Looks stable. Well-developed, well-nourished, and in no acute distress. VITAL SIGNS: Blood pressure 135/76, pulse 61 per minute, respirations 16 per minute, temperature 96.4, pulse ox 93% on room air. HEENT: Head: Atraumatic. No sinus tenderness to palpation. Eyes: No icterus or conjunctivitis. Mouth and throat: No oral thrush or mucositis. NECK: Supple. No cervical or supraclavicular lymphadenopathy. LUNGS: Clear to auscultation and percussion bilaterally. HEART: Regular rate and rhythm. No gallops, murmurs, clicks or rubs. ABDOMEN: Soft and lax. No tenderness. No hepatosplenomegaly. No masses. EXTREMITIES: No cyanosis, clubbing or edema. LYMPHATICS: No peripheral lymphadenopathy. NEUROLOGICAL: Conscious, alert and oriented times three. No focal motor or sensory deficits. PSYCHIATRIC: Mood and affect appear normal. SKIN: No skin rash, bruise or purpuric eruption. DIAGNOSTIC DATA CBC showed a white count of 4.6, hemoglobin 13.6, hematocrit 39, platelets 99, 000. Chem panel totally normal except blood sugar 118. CEA is 4.6, which is up from 2.6. MRI done on December 16, 2017 showed the poorly defined area in the right lobe of the liver is stable in size, but still concerning for metastasis. ASSESSMENT 1. Recurrent cecal adenocarcinoma. Patient was initially diagnosed with stage II (T3 N0 M0) cecal adenocarcinoma, status post right hemicolectomy March 15, 2015 with negative lymph nodes for metastasis. Oncotype DX testing of the mass showed recurrent score of 22. Patient decided not to take adjuvant chemotherapy. CEA during surveillance increased from 2.3 to 5.3, and PET/CT scan done June 06, 2017 showed 1.3 cm hypodense, hypermetabolic lesion in the anterior aspect of the right hepatic lobe, concerning for metastasis. There was a small hypermetabolic focus in the left hilum suspicious for lymphadenopathy which could be metabolically reactive. There was a 1.5 cm hypodense nodule in the left thyroid with SUV 2.8. Patient had partial hepatectomy with intraoperative ultrasound microwave ablation done October 22, 2016. Segment 4 of the hepatic resection did reveal the presence of adenocarcinoma consistent with colonic primary. Patient received 4 cycles of adjuvant chemotherapy with FOLFOX between December 10, 2016 through February 05, 2017. His CEA showed response to the treatment. It dropped from 5.4 to 4.6 to 3.1, to 3 to 2.6. His current CEA is 4.6, but his MRI of the abdomen now showed stable suspicious lesion in the right lobe of the liver, and for this reason I am planning to see him again in three months with another MRI of the abdomen and repeat CEA and CBC and chem panel at that time. If there is any evidence of progression then we will consider PET scan and further treatment at that time. Even if the suspicious area in the right lobe of the liver is metastatic it is currently inactive and I am planning to treat him whenever this mass is active again in the future. I explained that to the patient and his and they are agreeable with the plan of management. 2. Gout, on treatment. 3. Chemotherapy-induced thrombocytopenia. Current platelet count 99,000, which is stable. We will continue to monitor. PLAN 1. Continue followup. 2. Patient to return in three months with CBC, chem panel, CEA and MRI of the abdomen and pelvis.. 3. Patient is to contact us for any new concerns or complaints. STEFAND
[2018-01-14 10:05] VITALS: BP 133/77
[2018-01-14] MEDS: LIDOCAINE/SOD BICARB 8.4% SYR ID PRN (10:10)
[2018-01-14] MEDS: HEPARIN FLSH (PORT) 500 UN/5ML IVP PRN (10:11)
[2018-02-18 10:12] VITALS: BP 125/68
[2018-02-18] MEDS: HEPARIN FLSH (PORT) 500 UN/5ML IVP PRN (10:12)
[2018-02-18] MEDS: LIDOCAINE/SOD BICARB 8.4% SYR ID PRN (10:12)
[2018-03-17 08:53] VITALS: BP 170/84
[2018-03-17] MEDS: LIDOCAINE/SOD BICARB 8.4% SYR ID PRN (08:57)
[2018-03-17] MEDS: HEPARIN FLSH (PORT) 500 UN/5ML IVP PRN (08:57)
[2018-03-17 09:03] VITALS: BP 153/97
[~2018-03-31 08:10] MED LIST changes: +ALTEPLASE RECOMB 2 MG VIAL IVP PRN; +DEXTROSE 5%(*) 100 ML BAG 100 ML IVPB PRN; +NS(*) 0.9% 100 ML BAG 100 ML IVPB PRN; +NS(*) 0.9% 500 ML BAG 500 ML IV PRN; +WATER STERILE 10 ML VIAL IVP PRN
[2018-03-31 08:17] VITALS: BP 120/71
[2018-03-31] MEDS: HEPARIN FLSH (PORT) 500 UN/5ML IVP PRN (08:35)
[2018-03-31] MEDS: LIDOCAINE/SOD BICARB 8.4% SYR ID PRN (08:35)
[2018-03-31] MEDS ORDERED: GADOBENATE 529MG/1ML 15ML VIAL IVP ONE (08:55)
[2018-03-31] MEDS ORDERED: NS 0.9% 20 ML SDV 60 ML ONE (08:56)
[2018-03-31 08:58] LABS: PLATELET COUNT, AUTOMATED 117 K/uL (150-450)
--- NOTE | 2018-03-31 15:08 | RADIOLOGY IMAGING REPORT ---
FACILITY: [facility] PATIENT NAME: Paulie Oakes : 1945 MR: [id number] V: [id number] EXAM DATE: ORDERING PHYSICIAN: ANTONIO ROBLERO TECHNOLOGIST: Location: [facility] - [place] Patient: Paulie Oakes : 1945 Visit/Account:[id number] Date of Sevice: 03/31/2018 EXAMINATION: MR abdomen without and with IV contrast MR pelvis without and with IV contrast HISTORY: Follow-up colon cancer, liver lesion. Technique: Multiplanar, multisequence MR images of the abdomen and pelvis were obtained without and w ith IV contrast. Contrast: 15 mL of IV Multihance. COMPARISON: MR abdomen without and with contrast 12/16/2017 and 09/23/2017. PET/CT 07/17/2017 CT chest/abdomen/pelvis 03/25/2017. FINDINGS: MR abdomen: Liver: Normal hepatic size and morphology. Stable postsurgical changes in segment VIII of the liver for prior metastasis resection with some localized susceptibility artifact. No abnormal enhancement i n this region to suggest tumor recurrence. There is a persistent ill-defined region of arterial hyperenhancement in segment VII of the right hep atic lobe posteriorly which remains indeterminate. This measures approximately 3.8 x 3.1 cm and is wi thout definite change from the prior MRI exams of 12/16/2017 and 09/23/2017. No focal FDG uptake is not ed in this area on the prior PET/CT of 07/17/2017. Small adjacent satellite lesion along the subcapsula r aspect of the liver just anterior to the dominant lesion also appears grossly stable, measuring victor m roximately 1 cm. This is best visualized on the diffusion-weighted images. No other new focal liver l esion. The hepatic veins and portal veins are patent. Gallbladder and bile ducts: Cholecystectomy. No bile duct dilatation. Spleen: Negative. Pancreas: Mild diffuse parenchymal atrophy. Several subcentimeter cystic foci appear stable. Adrenal glands: Negative. Kidneys: Both kidneys are negative for hydronephrosis. Bilateral renal cysts appear stable, includin g complicated cysts along the lower pole of both kidneys. Bowel and peritoneum: Partial resection of the right colon. The visualized portions of the small bow el and colon are normal in caliber. Extensive colonic diverticulosis along the remaining colon. No ab dominal ascites. Lymph node assessment: Negative. Vessels: The abdominal aorta and IVC are patent and normal in caliber. Mild scattered atheroscleroti c plaque. Musculoskeletal: Negative. Body wall: Negative. Lung bases: Negative. MR pelvis: Bowel and peritoneum: Pelvic segments of the small bowel and colon are normal in caliber. Extensive c olonic diverticulosis along the sigmoid colon. No pelvic free fluid. Pelvic structures: Mild prostatic enlargement. The urinary bladder is unremarkable. Vessels: Negative. Pelvic lymph node assessment: Negative. Musculoskeletal/body wall: Small fat-containing right inguinal hernia. Advanced chronic degenerative changes at the right hip. No suspicious focal osseous lesions. IMPRESSION: 1. Stable MR appearance of the liver. A poorly defined region of arterial hyperenhancement in the rig ht hepatic lobe posteriorly appears grossly stable, with a small adjacent satellite lesion. These rem ain indeterminate. Stable postsurgical changes in the anterior right lobe of the liver. No evidence o f any new liver mass. 2. Prior right colonic resection. The remaining small bowel and colon are normal in caliber. Extensiv e colonic diverticulosis. 3. No other evidence of new metastatic disease in the abdomen or pelvis. 4. Cholecystectomy. 5. Stable bilateral renal cysts, including complicated cysts along the lower pole of both kidneys. 6. Small fat-containing right inguinal hernia. Report Dictated By: Julien Sanford MD at 03/31/2018 2:37 PM Report E-Signed By: Julien Sanford MD at 03/31/2018 3:04 PM WSN:[id number]
--- NOTE | 2018-03-31 15:09 | RADIOLOGY IMAGING REPORT ---
[place] [facility] [place] NAME: aPulie Oakes : 1945 MR: [id number] V: [id number] EXAM DATE: ORDERING PHYSICIAN: ANTONIO ROBLERO TECHNOLOGIST: Location: [facility] Patient: Paulie Oakes : 1945 Visit/Account:[id number] Date of Sevice: 03/31/2018 EXAMINATION: MR abdomen without and with IV contrast MR pelvis without and with IV contrast HISTORY: Follow-up colon cancer, liver lesion. Technique: Multiplanar, multisequence MR images of the abdomen and pelvis were obtained without and w ith IV contrast. Contrast: 15 mL of IV Multihance. COMPARISON: MR abdomen without and with contrast 12/16/2017 and 09/23/2017. PET/CT 07/17/2017 CT chest/abdomen/pelvis 03/25/2017. FINDINGS: MR abdomen: Liver: Normal hepatic size and morphology. Stable postsurgical changes in segment VIII of the liver for prior metastasis resection with some localized susceptibility artifact. No abnormal enhancement i n this region to suggest tumor recurrence. There is a persistent ill-defined region of arterial hyperenhancement in segment VII of the right hep atic lobe posteriorly which remains indeterminate. This measures approximately 3.8 x 3.1 cm and is wi thout definite change from the prior MRI exams of 12/16/2017 and 09/23/2017. No focal FDG uptake is not ed in this area on the prior PET/CT of 07/17/2017. Small adjacent satellite lesion along the subcapsula r aspect of the liver just anterior to the dominant lesion also appears grossly stable, measuring victor m roximately 1 cm. This is best visualized on the diffusion-weighted images. No other new focal liver l esion. The hepatic veins and portal veins are patent. Gallbladder and bile ducts: Cholecystectomy. No bile duct dilatation. Spleen: Negative. Pancreas: Mild diffuse parenchymal atrophy. Several subcentimeter cystic foci appear stable. Adrenal glands: Negative. Kidneys: Both kidneys are negative for hydronephrosis. Bilateral renal cysts appear stable, includin g complicated cysts along the lower pole of both kidneys. Bowel and peritoneum: Partial resection of the right colon. The visualized portions of the small bow el and colon are normal in caliber. Extensive colonic diverticulosis along the remaining colon. No ab dominal ascites. Lymph node assessment: Negative. Vessels: The abdominal aorta and IVC are patent and normal in caliber. Mild scattered atheroscleroti c plaque. Musculoskeletal: Negative. Body wall: Negative. Lung bases: Negative. MR pelvis: Bowel and peritoneum: Pelvic segments of the small bowel and colon are normal in caliber. Extensive c olonic diverticulosis along the sigmoid colon. No pelvic free fluid. Pelvic structures: Mild prostatic enlargement. The urinary bladder is unremarkable. Vessels: Negative. Pelvic lymph node assessment: Negative. Musculoskeletal/body wall: Small fat-containing right inguinal hernia. Advanced chronic degenerative changes at the right hip. No suspicious focal osseous lesions. IMPRESSION: 1. Stable MR appearance of the liver. A poorly defined region of arterial hyperenhancement in the rig ht hepatic lobe posteriorly appears grossly stable, with a small adjacent satellite lesion. These rem ain indeterminate. Stable postsurgical changes in the anterior right lobe of the liver. No evidence o f any new liver mass. 2. Prior right colonic resection. The remaining small bowel and colon are normal in caliber. Extensiv e colonic diverticulosis. 3. No other evidence of new metastatic disease in the abdomen or pelvis. 4. Cholecystectomy. 5. Stable bilateral renal cysts, including complicated cysts along the lower pole of both kidneys. 6. Small fat-containing right inguinal hernia. Report Dictated By: Julien Sanford MD at 03/31/2018 2:37 PM Report E-Signed By: Julien Sanford MD at 03/31/2018 3:04 PM WSN:[id number]
== END 2018-04-02 ==
LOC: SPU 08:10
PROVIDERS: ATTEND Internal Medicine Hematology
DX: C18.0 Malignant neoplasm of cecum (principal); M10.9 Gout, unspecified; D69.59 Other secondary thrombocytopenia; I10 Essential (primary) hypertension; N28.1 Cyst of kidney, acquired; R05 Cough
CPT/HCPCS: 72197; 74183; 82378; 85025; 96523; A9577; G0463; J1642; J7050; 82040; 82247; 82310; 82374; 82435; 82565; 82947; 84075; 84132; 84155; 84295; 84450; 84460; 84520; 99212

== ENCOUNTER → 2018-05-30 | Day surgery (SDC) | payer MEDICARE, OTHER ==
[2015-03-16 17:08] VITALS: Ht 177.8 cm; Wt 78.0 kg
[2018-05-30] VITALS (7 sets, daily range): BP systolic 104–165; BP diastolic 52–93
[~2018-05-30] VITALS: Ht 177.8 cm; Wt 78.0 kg
[~2018-05-30] MED LIST changes: -ALTEPLASE RECOMB 2 MG VIAL IVP PRN; -DEXTROSE 5%(*) 100 ML BAG 100 ML IVPB PRN; +IBUP-136 PO; -IBUP200C71 PO; +LIDOCAINE/SOD BICARB 8.4% SYR ID ONE; +NORMOSOL R SOLN(*) 1000 ML BAG 1,000 ML IV PRN; -NS(*) 0.9% 100 ML BAG 100 ML IVPB PRN; -NS(*) 0.9% 500 ML BAG 500 ML IV PRN; -WATER STERILE 10 ML VIAL IVP PRN
--- NOTE | 2018-05-30 11:12 | Short(Outpt) Discharge Summary ---
Discharge Summary Reason for Hosp/Final Diag: (1) Cancer of right colon Onset Date: 03/15/2015 Status: Resolved Hospital Course & Plan: Colonoscopy with polypectomy x4 completed without problems. Departure Discharge to: Home, Self Care Discharge Instructions Home Meds Active Scripts Triamterene/Hydrochlorothiazid (DYAZIDE 37.5-25 CAPSULE) 1 Each Capsule, 1 EACH PO QDAY, #14 CAPSULE 0 Refills Prov:RAY GRIMM MD 05/16/18 Allopurinol (ZYLOPRIM) 300 Mg Tablet, 300 MG PO QDAY, #90 TAB 1 Refill TAKE 1 TABLET BY MOUTH EVERY DAY Prov:RAY GRIMM MD 11/20/17 Losartan Potassium (LOSARTAN POTASSIUM) 100 Mg Tablet, 100 MG PO QDAY, #90 TAB 3 Refills Prov:RAY GRIMM MD 11/13/17 Fluticasone Prop 50 Mcg Ns (FLONASE 50 MCG NS) 16 Gm Clark.susp, 2 SPRAYS NA QDAY for 30 Days, #3 BOT 3 Refills Prov:NORRIS MILLER JR, MD 10/15/17 Potassium Chloride (Potassium Chloride) 20 Meq Tablet.er, 20 MEQ PO DAILY, #60 TAB 6 Refills Prov:TANA QUINTANILLA ORAL SURGERY ASSISTANT-BC, ONC 08/22/17 Reported Medications Doxazosin Mesylate (DOXAZOSIN MESYLATE) 4 Mg Tablet, 4 MG PO QDAY 02/04/18 Prednisolone Acetate (PREDNISOLONE ACETATE) 5 Ml Drops.susp, 1 DROP OP TID 11/13/17 Oxygen (OXYGEN) Inha, 2 L INH HS, L 05/16/17 Timolol Maleate/Pf (TIMOPTIC 0.25% OCUDOSE DROP) 1 Each Droperette, 1 EACH OP Left eye only 05/16/17 Bimatoprost (LUMIGAN) 2.5 Ml Drops, 2.5 ML OP QHS 03/02/15 Discontinued Reported Medications Ibuprofen (IBUPROFEN) 200 Mg Capsule, 1-2 CAP PO Q6H Y for PAIN/HEADACHE, CAPSULE 03/08/16 Diet: Regular Activity: As Tolerated Special Instructions: Your colonoscopy was completed without problems and your prep was good. I removed 4 polyps from your colon and they were all sent to pathology. My office will call you in the next week or so and let you know what the polyps are and when your next colonoscopy should be. NUVIA HERNANDEZ MD May 30, 2018 11:12
== END ==
LOC: OR 02:12
PROVIDERS: ATTEND Surgery
DX: Z12.11 Encounter for screening for malignant neoplasm of colon (principal); D12.3 Benign neoplasm of transverse colon; K62.1 Rectal polyp; Z85.038 Personal history of other malignant neoplasm of large intestine
CPT/HCPCS: 88305

== ENCOUNTER 2018-06-11 08:45 | Outpatient (RCR) | payer MEDICARE, OTHER ==
[2015-03-16 17:08] VITALS: Wt 81.9 kg
[2018-04-04 10:03] VITALS: BP 136/81
--- NOTE | 2018-04-04 17:35 | ONCOLOGY FOLLOW UP NOTE ---
EVENT DATE: April 04, 2018 DIAGNOSES 1. 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 2. Complex cyst of both kidneys. 3. Hypertension. 4. Gout. 5. Glaucoma. CHIEF COMPLAINT Patient is here today for followup of his metastatic colon cancer. ONCOLOGY HISTORY The patient is a 71-year-old male. The patient is doing fine currently. He has gained some weight. He still has sweating. He has also cough and runny nose, and he has hiccups lately. The patient has been evaluated at the for his recurrent colon cancer and he is under evaluation currently. He was found to have a mass in the pancreas lately, and the patient is going to have EUS for that mass soon as well as repeat MRI and biopsy of the liver with marker placement. PRESENTATION Abnormal screening colonoscopy done by Dr. Damon, who found a large tumor in the right colon, suggestive of malignancy. PROCEDURE Right hemicolectomy done on March 15, 2015. PATHOLOGY Positive for invasive moderately differentiated colonic adenocarcinoma. Fifteen lymph nodes were negative for metastasis. Immuno stains for microsatellite instability were PMS2, MSH2, MSH6 and MLH1 all came back positive. Oncotype DX colon cancer assay showed a recurrence score result of 22. Oncotype DX colon cancer assay showed a recurrence score result of 22. STAGING WORKUP 1. CT of abdomen and pelvis with contrast done on March 09, 2015 showed markedly thickened cecum and ascending colon with irregularity consistent with colon cancer. There were small shotty retroperitoneal lymph nodes present. Bilateral renal cysts in addition to bilateral complex masses in both kidneys. 2. MRI of the abdomen with/without contrast done March 10, 2015 showed complex mass, lower pole of right kidney, consistent with Bosniak type III cyst. Another complex in the lower pole of the left kidney represented a Bosniak type III cyst. There was a large mass involving the cecum extending into the approximate ascending colon, consistent with history of colon cancer. TREATMENT The patient started chemotherapy with FOLFOX pending surgery on July 23, 2016. The patient had black/partial hepatectomy with intraoperative ultrasound and microwave ablation on October 22, 2016 and pathology came back positive for the segment for hepatic resection for adenocarcinoma of the colon. The patient started adjuvant chemotherapy with FOLFOX chemotherapy on December 25, 2016. The patient completed four courses of adjuvant chemotherapy with FOLFOX on February 06, 2017. The patient completed four courses of FOLFOX in adjuvant setting after his surgery on February 05, 2014. HISTORY OF PRESENT ILLNESS Patient is here today for followup of his recurrent metastatic colon cancer. He is doing fine currently. He has cough with expectoration. He has also diarrhea occasionally. PAST MEDICAL HISTORY 1. Colon cancer. 2. Hypertension. 3. Gout. 4. Glaucoma. PAST SURGICAL HISTORY 1. Multiple eye surgeries for glaucoma. 2. Tonsillectomy. 3. Right hemicolectomy done on March 15, 2015. 4. Black/partial hepatectomy with intraoperative ultrasound and microwave ablation done on October 22, 2016. SOCIAL HISTORY The patient is . He has two sons. He is retired. Denies any abuse of tobacco, alcohol or drugs. FAMILY HISTORY Maternal aunt had breast cancer in her late 60s. Maternal cousin had small cell lung cancer. CURRENT MEDICATIONS 1. Multivitamins one tablet daily. 2. Betimol eye drops daily. 3. Lumigan 2.5 mL drops at bedtime. 4. Hyzaar 50/12.5 mg tablet daily. 5. Allopurinol 300 mg daily. 6. Cardura 4 mg at bedtime. 7. Verapamil SR 240 mg daily. ALLERGIES No known drug allergies. REVIEW OF SYSTEMS CONSTITUTIONAL: No appetite or weight change. No fever, chills or sweating. No recent infection. HEENT: Ears: No tinnitus or hearing problem. Nose: No nasal discharge or epistaxis. Throat: No sore throat or mouth ulcers. Eyes: No diplopia or visual changes. RESPIRATORY: He has cough with expectoration. CARDIOVASCULAR: No chest pain, orthopnea, or paroxysmal nocturnal dyspnea (PND) . No edema. No palpitations. GASTROINTESTINAL: He has diarrhea. GENITOURINARY: No hematuria or dysuria. MUSCULOSKELETAL: He has pain in the right leg. NEUROLOGICAL: His tingling and numbness is getting better. HEMATOLOGIC/LYMPHATIC: He has occasional fatigue. No enlarged lymph nodes. SKIN: No skin rash or lumps. PSYCHIATRIC: No anxiety or depression. PHYSICAL EXAMINATION GENERAL: Looks stable. Well-developed, well-nourished, and in no acute distress. VITAL SIGNS: Blood pressure 136/81, pulse 50 per minute, respirations 16 per minute, temperature 97.2, pulse ox 92% on room air. HEENT: Head: Atraumatic. No sinus tenderness to palpation. Eyes: No icterus or conjunctivitis. Mouth and throat: No oral thrush or mucositis. NECK: Supple. No cervical or supraclavicular lymphadenopathy. LUNGS: Clear to auscultation and percussion bilaterally. HEART: Regular rate and rhythm. No gallops, murmurs, clicks or rubs. ABDOMEN: Soft and lax. No tenderness. No hepatosplenomegaly. No masses. EXTREMITIES: No cyanosis, clubbing or edema. LYMPHATICS: No peripheral lymphadenopathy. NEUROLOGICAL: Conscious, alert and oriented times three. No focal motor or sensory deficits. PSYCHIATRIC: Mood and affect appear normal. SKIN: No skin rash, bruise or purpuric eruption. DIAGNOSTIC DATA CBC showed white count 4.8, hemoglobin 13.1, hematocrit 37.3 platelets 117,000. Chem panel totally normal except BUN 23, blood sugar 115. CEA is 2.9, which is down from 4.6. MRI abdomen and pelvis done on March 31, 2018 was stable without any evidence of progression. ASSESSMENT 1. Recurrent cecal adenocarcinoma. Patient was initially diagnosed with stage II (T3 N0 M0) cecal adenocarcinoma, status post right hemicolectomy March 15, 2015 with negative lymph nodes for metastasis. Oncotype DX testing at that time showed recurrence score of 22. Patient decided not to take adjuvant chemotherapy. CEA during his surveillance increased from 2.3 to 5.3, and PET/ CT scan done June 06, 2017 showed 1.3 cm hypodense, hypermetabolic lesion in the anterior aspect of the right hepatic lobe, concerning for metastasis. There was a small hypermetabolic focus in the left hilum suspicious for lymphadenopathy which could be metabolically reactive. There was a 1.5 cm hypodense nodule in the left thyroid with SUV 2.8. Patient had partial hepatectomy with intraoperative ultrasound microwave ablation done October 22, 2016. Segment 4 of the hepatic resection did reveal the presence of adenocarcinoma consistent with colonic primary. Patient received 4 cycles of adjuvant chemotherapy with FOLFOX between December 10, 2016 through February 05, 2017. His CEA showed response to his treatment. It dropped from 5.4 to 2.6. His CEA last visit was 4.6, and his MRI of the abdomen showed the stable, suspicious lesion in the right lobe of the liver. So his repeat MRI on March 31, 2018 showed stable MRI of the abdomen and pelvis and his CEA dropped from 4.6 to 2.9. I am planning to continue followup. I will see him again in three months with CBC, chem panel and CEA. 2. Gout on treatment. 3. Chemotherapy-induced thrombocytopenia. Current platelet count 117,000, up from 99,000 last visit. I will continue to monitor. No hematological intervention is required at the moment. PLAN 1. Continue followup. 2. Patient to return in three months with CBC, chem panel, CEA. 3. Refer to Dr. Koroma for screening colonoscopy and the removal of central port. 4. Patient is to contact us for any new concerns or complaints. STEFAND
[2018-05-05] MEDS: LIDOCAINE/SOD BICARB 8.4% SYR ID PRN (09:52)
[2018-05-05] MEDS: HEPARIN FLSH (PORT) 500 UN/5ML IVP PRN (09:52)
[2018-05-05 10:35] VITALS: BP 116/70
[~2018-06-11 08:45] MED LIST changes: +ALTEPLASE RECOMB 2 MG VIAL IVP PRN; +DEXTROSE 5%(*) 100 ML BAG 100 ML IVPB PRN; -LIDOCAINE/SOD BICARB 8.4% SYR ID ONE; -NORMOSOL R SOLN(*) 1000 ML BAG 1,000 ML IV PRN; +NS(*) 0.9% 100 ML BAG 100 ML IVPB PRN; +NS(*) 0.9% 500 ML BAG 500 ML IV PRN; +WATER FOR INJ,STERILE 20 ML IVP PRN
[2018-06-11 08:55] VITALS: BP 148/81
[2018-06-11] MEDS: LIDOCAINE/SOD BICARB 8.4% SYR ID PRN (09:09)
[2018-06-11] MEDS: HEPARIN FLSH (PORT) 500 UN/5ML IVP PRN (09:10)
[2018-06-23] MEDS ORDERED: ALLO-119 PO (10:40)
[2018-07-03] MEDS ORDERED: POTA20TA10 PO (16:56)
== END 2018-07-02 ==
LOC: SPU 08:45
PROVIDERS: ATTEND Internal Medicine Hematology
DX: C18.0 Malignant neoplasm of cecum (principal); M10.9 Gout, unspecified; D69.59 Other secondary thrombocytopenia; I10 Essential (primary) hypertension; Z92.21 Personal history of antineoplastic chemotherapy; H40.9 Unspecified glaucoma
CPT/HCPCS: 96523; G0463; J1642; 99212

== ENCOUNTER 2018-09-03 12:57 | Outpatient (RCR) | payer MEDICARE, OTHER ==
[2015-03-16 17:08] VITALS: Wt 81.1 kg
[2018-07-07 09:12] LABS: PLATELET COUNT, AUTOMATED 107 K/uL (150-450)
[2018-07-11 09:00] VITALS: BP 181/75
--- NOTE | 2018-07-11 11:28 | [facility] ONCOLOGY NOTE ---
EVENT DATE: July 11, 2018 DIAGNOSES 1. 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 2. Complex cyst of both kidneys. 3. Hypertension. 4. Gout. 5. Glaucoma. CHIEF COMPLAINT Patient is here today for followup of his metastatic colon cancer. ONCOLOGY HISTORY The patient is a 73-year-old male. The patient is doing fine currently. He has gained some weight. He still has sweating. He has also cough and runny nose, and he has hiccups lately. The patient has been evaluated at the [facility] for his recurrent colon cancer and he is under evaluation currently. He was found to have a mass in the pancreas lately, and the patient is going to have EUS for that mass soon as well as repeat MRI and biopsy of the liver with marker placement. PRESENTATION Abnormal screening colonoscopy done by Dr. Damon, who found a large tumor in the right colon, suggestive of malignancy. PROCEDURE Right hemicolectomy done on March 15, 2015. PATHOLOGY Positive for invasive moderately differentiated colonic adenocarcinoma. Fifteen lymph nodes were negative for metastasis. Immuno stains for microsatellite instability were PMS2, MSH2, MSH6 and MLH1 all came back positive. Oncotype DX colon cancer assay showed a recurrence score result of 22. Oncotype DX colon cancer assay showed a recurrence score result of 22. STAGING WORKUP 1. CT of abdomen and pelvis with contrast done on March 09, 2015 showed markedly thickened cecum and ascending colon with irregularity consistent with colon cancer. There were small shotty retroperitoneal lymph nodes present. Bilateral renal cysts in addition to bilateral complex masses in both kidneys. 2. MRI of the abdomen with/without contrast done March 10, 2015 showed complex mass, lower pole of right kidney, consistent with Bosniak type III cyst. Another complex in the lower pole of the left kidney represented a Bosniak type III cyst. There was a large mass involving the cecum extending into the approximate ascending colon, consistent with history of colon cancer. TREATMENT The patient started chemotherapy with FOLFOX pending surgery on July 23, 2016. The patient had black/partial hepatectomy with intraoperative ultrasound and microwave ablation on October 22, 2016 and pathology came back positive for the segment for hepatic resection for adenocarcinoma of the colon. The patient started adjuvant chemotherapy with FOLFOX chemotherapy on December 25, 2016. The patient completed four courses of adjuvant chemotherapy with FOLFOX on February 06, 2017. The patient completed four courses of FOLFOX in adjuvant setting after his surgery on February 05, 2014. HISTORY OF PRESENT ILLNESS Patient is here today for followup of his recurrent metastatic colon cancer. He is complaining of some cough with expectoration. He has some abdominal pain due to hernia. He had his colonoscopy done on May 30, 2018 but generally speaking he is really doing very well currently. PAST MEDICAL HISTORY 1. Colon cancer. 2. Hypertension. 3. Gout. 4. Glaucoma. PAST SURGICAL HISTORY 1. Multiple eye surgeries for glaucoma. 2. Tonsillectomy. 3. Right hemicolectomy done on March 15, 2015. 4. Black/partial hepatectomy with intraoperative ultrasound and microwave ablation done on October 22, 2016. SOCIAL HISTORY The patient is . He has two sons. He is retired. Denies any abuse of tobacco, alcohol or drugs. FAMILY HISTORY Maternal aunt had breast cancer in her late 60s. Maternal cousin had small cell lung cancer. CURRENT MEDICATIONS 1. Multivitamins one tablet daily. 2. Betimol eye drops daily. 3. Lumigan 2.5 mL drops at bedtime. 4. Hyzaar 50/12.5 mg tablet daily. 5. Allopurinol 300 mg daily. 6. Cardura 4 mg at bedtime. 7. Verapamil SR 240 mg daily. ALLERGIES No known drug allergies. REVIEW OF SYSTEMS CONSTITUTIONAL: No appetite or weight change. No fever, chills or sweating. No recent infection. HEENT: Ears: No tinnitus or hearing problem. Nose: No nasal discharge or epistaxis. Throat: No sore throat or mouth ulcers. Eyes: No diplopia or visual changes. RESPIRATORY: He has cough with expectoration. CARDIOVASCULAR: No chest pain, orthopnea, or paroxysmal nocturnal dyspnea (PND). No edema. No palpitations. GASTROINTESTINAL: He has abdominal pain due to his hernia. GENITOURINARY: No hematuria or dysuria. MUSCULOSKELETAL: He has pain in the right leg. NEUROLOGICAL: His tingling and numbness is getting better. HEMATOLOGIC/LYMPHATIC: He has occasional fatigue. No enlarged lymph nodes. SKIN: No skin rash or lumps. PSYCHIATRIC: No anxiety or depression. PHYSICAL EXAMINATION GENERAL: Looks stable. Well-developed, well-nourished, and in no acute distress. VITAL SIGNS: Blood pressure 181/75, pulse 48 per minute, respirations 16 per minute, temperature 97.1, pulse ox 94% on room air. HEENT: Head: Atraumatic. No sinus tenderness to palpation. Eyes: No icterus or conjunctivitis. Mouth and throat: No oral thrush or mucositis. NECK: Supple. No cervical or supraclavicular lymphadenopathy. LUNGS: Clear to auscultation and percussion bilaterally. HEART: Regular rate and rhythm. No gallops, murmurs, clicks or rubs. ABDOMEN: Soft and lax. No tenderness. No hepatosplenomegaly. No masses. EXTREMITIES: No cyanosis, clubbing or edema. LYMPHATICS: No peripheral lymphadenopathy. NEUROLOGICAL: Conscious, alert and oriented times three. No focal motor or sensory deficits. PSYCHIATRIC: Mood and affect appear normal. SKIN: No skin rash, bruise or purpuric eruption. DIAGNOSTIC DATA CBC showed white count 4.1, hemoglobin 13.3, hematocrit 37.5 platelets 107,000. Chem panel totally normal except chloride 109, BUN 26, blood sugar 119. CEA is 3, which is up from 2.9 so it is stable. Colonoscopy done on May 30, 2018 showed four polyps, which are removed. One from the transverse colon, one from the splenic flexure, one from the rectum and all were tubular adenoma. There was a fourth polyp from the rectum which was hyperplastic polyp. ASSESSMENT 1. Recurrent cecal adenocarcinoma. Patient was initially diagnosed with stage II (T3 N0 M0) rectal adenocarcinoma, status post right hemicolectomy March 15, 2015 with negative lymph nodes for metastasis. Oncotype DX testing at that time showed recurrence score of 22. Patient decided not to take adjuvant chemotherapy. CEA during his surveillance increased from 2.3 to 5.3 and PET/CT scan done June 06, 2017 showed 1.3 cm hypodense, hypermetabolic lesion in the anterior aspect of the right hepatic lobe, concerning for metastasis. There was a small hypermetabolic focus in the left hilum suspicious for lymphadenopathy which could be metabolically reactive. There was a 1.5 cm hypodense nodule in the left thyroid with SUV 2.8. Patient had partial hepatectomy with intraoperative ultrasound microwave ablation done October 22, 2016. Segment 4 of the hepatic resection did reveal the presence of adenocarcinoma consistent with colonic primary. Patient received 4 cycles of adjuvant chemotherapy with FOLFOX between December 10, 2016 through February 05, 2017. His CEA response was evident with his treatment. It dropped from 5.4 to 2.6. His CEA giovana to 4.6, and MRI of the abdomen showed the stable, suspicious lesion in the right lobe of the liver. His MRI was repeated March 31, 2018, which showed stable MRI of the abdomen and pelvis and his CEA dropped from 4.6 to 2.9 and currently it is 3. The patient had a colonoscopy done on May 30, 2018 and four polyps were removed, one from the transverse colon, one from splenic flexure and one from the rectum and are were tubular adenoma, while a fourth polyp was removed from the rectum and was hyperplastic polyp. The patient was advised to repeat his colonoscopy in a year from now. Regarding his central port, I talked to him because he is Stage IV it is better to keep the port and to flush it every month and the patient is agreeable with that. I am planning to continue followup. I will see him again in three months with CBC, chem panel and CEA. 2. Gout, on treatment. 3. Chemotherapy-induced thrombocytopenia. Current platelet count 107,000, which is stable. I will continue to monitor. PLAN 1. Continue followup. 2. Patient to return in three months with CBC, chem panel, CEA. 3. Patient is thinking about keeping the port in place currently. . 5. Patient is to contact us for any new concerns or complaints. 6. Port flush every month. MTDD
[~2018-09-03 12:57] MED LIST changes: +HEPARIN FLSH (PORT) 500 UN/5ML IVP PRN; +LIDOCAINE/SOD BICARB 8.4% SYR ID PRN; -LOSA100T67 PO; +LOSA100T69 PO; -LOSA50TA72 PO; +LOSA50TA74 PO
[2018-09-03 13:02] VITALS: BP 124/78
[2018-09-18] MEDS ORDERED: ALLO-119 PO (15:30)
[2018-09-24] MEDS ORDERED: TRIA1CAP85 PO (08:53)
[2018-09-24] MEDS ORDERED: DOXA8TAB11 PO (08:53)
== END 2018-10-02 ==
LOC: SPU 12:57
PROVIDERS: ATTEND Internal Medicine Hematology
DX: C18.0 Malignant neoplasm of cecum (principal); D12.6 Benign neoplasm of colon, unspecified; Z92.21 Personal history of antineoplastic chemotherapy; N28.1 Cyst of kidney, acquired; I10 Essential (primary) hypertension; M10.9 Gout, unspecified; H40.9 Unspecified glaucoma; Z79.899 Other long term (current) drug therapy
CPT/HCPCS: 36591; 82378; 85025; 96523; G0463; J1642; 82040; 82247; 82310; 82374; 82435; 82565; 82947; 84075; 84132; 84155; 84295; 84450; 84460; 84520; 99212

== ENCOUNTER → 2018-10-07 | Outpatient (CLI) | payer MEDICARE, OTHER ==
[2015-03-16 17:08] VITALS: BMI 23.2
[~2018-10-07] MED LIST changes: -ALTEPLASE RECOMB 2 MG VIAL IVP PRN; -DEXTROSE 5%(*) 100 ML BAG 100 ML IVPB PRN; -HEPARIN FLSH (PORT) 500 UN/5ML IVP PRN; -LIDOCAINE/SOD BICARB 8.4% SYR ID PRN; -NS(*) 0.9% 100 ML BAG 100 ML IVPB PRN; -NS(*) 0.9% 500 ML BAG 500 ML IV PRN; +TRIA1CAP85 PO; -WATER FOR INJ,STERILE 20 ML IVP PRN
== END ==
LOC: SPU 09:05
PROVIDERS: ATTEND Internal Medicine
DX: R73.09 Other abnormal glucose (principal); C18.9 Malignant neoplasm of colon, unspecified; I11.9 Hypertensive heart disease without heart failure; Z12.5 Encounter for screening for malignant neoplasm of prostate

== ENCOUNTER 2018-12-04 08:00 | Outpatient (RCR) | payer MEDICARE, OTHER ==
[2015-03-16 17:08] VITALS: Wt 80.4 kg
[2018-10-07 08:54] VITALS: BP 140/80
[2018-10-07] MEDS: HEPARIN FLSH (PORT) 500 UN/5ML IVP PRN (08:56)
[2018-10-07] MEDS: LIDOCAINE/SOD BICARB 8.4% SYR ID PRN (08:58)
[2018-10-07 09:07] LABS: PLATELET COUNT, AUTOMATED 142 K/uL (150-450)
[2018-10-23 14:35] VITALS: BP 189/83
--- NOTE | 2018-10-23 23:00 | [facility] ONCOLOGY NOTE ---
EVENT DATE: October 23, 2018 DIAGNOSES 1. 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 2. Complex cysts of both kidneys. 3. Hypertension. 4. Gout. 5. Glaucoma. CHIEF COMPLAINT Patient is here today for followup of his metastatic colon cancer. ONCOLOGY HISTORY The patient is a 73-year-old male. The patient is doing fine currently. He has gained some weight. He still has sweating. He has also cough and runny nose, and he has hiccups lately. The patient has been evaluated at the [facility] for his recurrent colon cancer, and he is under evaluation currently. He was found to have a mass in the pancreas lately, and the patient is going to have EUS for that mass soon as well as repeat MRI and biopsy of the liver with marker placement. PRESENTATION Abnormal screening colonoscopy done by Dr. Damon, who found a large tumor in the right colon suggestive of malignancy. PROCEDURE Right hemicolectomy done on March 15, 2015. PATHOLOGY Positive for invasive, moderately differentiated colonic adenocarcinoma. Fifteen lymph nodes were negative for metastasis. Immunostaining for microsatellite instability with PMS2, MSH2, MSH6, and MLH1 all came back positive. OncotypeDX colon cancer assay showed a recurrence score result of 22. STAGING WORKUP 1. CT of abdomen and pelvis with contrast done on March 09, 2015, showed markedly thickened cecum and ascending colon with irregularity consistent with colon cancer. There were small, shotty retroperitoneal lymph nodes present. Bilateral renal cysts in addition to bilateral complex masses in both kidneys. 2. MRI of the abdomen with/without contrast done March 10, 2015, showed complex mass lower pole of right kidney, consistent with Bosniak type III cyst. Another complex in the lower pole of the left kidney represented a Bosniak type III cyst. There was a large mass involving the cecum extending into the approximate ascending colon, consistent with history of colon cancer. TREATMENT The patient started chemotherapy with FOLFOX pending surgery on July 23, 2016. The patient had en bloc partial hepatectomy with intraoperative ultrasound and microwave ablation on October 22, 2016, and pathology came back positive for the segment for hepatic resection for adenocarcinoma of the colon. The patient started adjuvant chemotherapy with FOLFOX chemotherapy on December 25, 2016. The patient completed four courses of adjuvant chemotherapy with FOLFOX on February 06, 2017. HISTORY OF PRESENT ILLNESS Patient is here today for followup of his recurrent metastatic colon cancer. He is complaining of cough with expectoration and wheezing. He has some diarrhea, especially in the morning, but other than that, he is really stable and doing fine. PAST MEDICAL HISTORY 1. Colon cancer. 2. Hypertension. 3. Gout. 4. Glaucoma. PAST SURGICAL HISTORY 1. Multiple eye surgeries for glaucoma. 2. Tonsillectomy. 3. Right hemicolectomy done on March 15, 2015. 4. En bloc partial hepatectomy with intraoperative ultrasound and microwave ablation done on October 22, 2016. SOCIAL HISTORY The patient is . He has two sons. He is retired. Denies any abuse of tobacco, alcohol, or drugs. FAMILY HISTORY Maternal aunt had breast cancer in her late 60s. Maternal cousin had small-cell lung cancer. CURRENT MEDICATIONS 1. Multivitamins one tablet daily. 2. Betimol eye drops daily. 3. Lumigan 2.5 mL drops at bedtime. 4. Hyzaar 50/12.5 mg tablet daily. 5. Allopurinol 300 mg daily. 6. Cardura 4 mg at bedtime. 7. Verapamil SR 240 mg daily. ALLERGIES No known drug allergies. REVIEW OF SYSTEMS CONSTITUTIONAL: No appetite or weight change. No fever, chills, or sweating. No recent infection. HEENT: Ears: No tinnitus or hearing problem. Nose: No nasal discharge or epistaxis. Throat: No sore throat or mouth ulcers. Eyes: No diplopia or visual changes. RESPIRATORY: No shortness of breath. Patient has cough with expectoration and wheezing. No hemoptysis. CARDIOVASCULAR: No chest pain, orthopnea, or paroxysmal nocturnal dyspnea (PND). No edema. No palpitations. GASTROINTESTINAL: No nausea or vomiting. He has diarrhea especially in the morning. No constipation. No change in bowel movements. No heartburn or swallowing difficulties. No abdominal pain. No jaundice. No hematemesis, melena, or rectal bleeding. GENITOURINARY: No hematuria or dysuria. MUSCULOSKELETAL: No pain in the muscles, joints or bones. NEUROLOGICAL: No tingling or numbness in the hands or feet. No headaches or convulsions. HEMATOLOGIC/LYMPHATIC: No bleeding or easy bruising. No weakness or fatigued. No enlarged lymph nodes. SKIN: No skin rash or lumps. PSYCHIATRIC: No anxiety or depression. PHYSICAL EXAMINATION GENERAL: Looks stable. Well developed, well nourished, and in no acute distress. VITAL SIGNS: Blood pressure 189/83, pulse 47 per minute, respirations 16 per minute, temperature 96.7, pulse ox 96% on room air. HEENT: Head: Atraumatic. No sinus tenderness to palpation. Eyes: No icterus or conjunctivitis. Mouth and Throat: No oral thrush or mucositis. NECK: Supple. No cervical or supraclavicular lymphadenopathy. LUNGS: Clear to auscultation and percussion bilaterally. HEART: Regular rate and rhythm. No gallops, murmurs, clicks, or rubs. ABDOMEN: Soft and lax. No tenderness. No hepatosplenomegaly. No masses. EXTREMITIES: No cyanosis, clubbing, or edema. LYMPHATICS: No peripheral lymphadenopathy. NEUROLOGICAL: Conscious, alert, and oriented times three. No focal motor or sensory deficits. PSYCHIATRIC: Mood and affect appear normal. SKIN: No skin rash, bruise, or purpuric eruption. DIAGNOSTIC DATA CBC showed white count 4.8, hemoglobin 13.1, hematocrit 37.6, platelets 142,000. Chem panel totally normal except chloride 108, BUN 23, blood sugar 117. Other parameters are normal. CEA is normal and stable at 3. ASSESSMENT 1. Recurrent cecal adenocarcinoma. 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 OncotypeDX testing at that time showed recurrence score of 22. Patient decided not to take adjuvant chemotherapy. CEA during his surveillance increased from 2.3 to 5.3, and PET/CT scan done June 06, 2017, showed 1.3 cm hypodense, hypermetabolic lesion in the anterior aspect of the right hepatic lobe concerning for metastasis. There was a small hypermetabolic focus in the left hilum suspicious for lymphadenopathy which could be metabolically active. There was a 1.5 cm hypodense nodule in the left thyroid with SUV 2.8. Patient had partial hepatectomy with intraoperative ultrasound microwave ablation done October 22, 2016. Segment 4 of the hepatic resection did reveal the presence of adenocarcinoma consistent with colonic primary. Patient received 4 cycles of adjuvant chemotherapy with FOLFOX between December 10, 2016, through February 05, 2017. His CEA response was evident with his treatment. It dropped from 5.4 to 2.6. His CEA giovana to 4.6, and MRI of the abdomen showed the stable suspicious lesion in the right lobe of the liver. Repeat MRI on March 31, 2018, showed stable MRI of the abdomen and pelvis, and his CEA dropped from 4.6 to 2.9, and currently it is 3 which is stable. The patient had a colonoscopy done on May 30, 2018, and four polyps were removed, one from the transverse colon, one from splenic flexure, one from the rectum, and all are were tubular adenoma, while the fourth polyp was removed from the rectum and was a hyperplastic polyp. The patient was advised to repeat his colonoscopy in a year. He is doing fine currently. I am planning to continue followup. I will see him again in three months with CBC, chemistry panel, and CEA. 2. Gout, on treatment. 3. Chemotherapy-induced thrombocytopenia. Current platelet count 142,000, up from 107,000. I will continue to monitor. PLAN 1. Continue followup. 2. Patient to return in three months with CBC, chem panel, and CEA. 3. Patient to contact us for any new concerns or complaints. BRENANA
[2018-11-06] MEDS: HEPARIN FLSH (PORT) 500 UN/5ML IVP PRN (08:27)
[2018-11-06] MEDS: LIDOCAINE/SOD BICARB 8.4% SYR ID PRN (08:27)
[2018-11-06 08:29] VITALS: BP 152/77
[~2018-12-04 08:00] MED LIST changes: +ALTEPLASE RECOMB 2 MG VIAL IVP PRN; +DEXTROSE 5%(*) 100 ML BAG 100 ML IVPB PRN; -LOSA100T69 PO; +LOSA100T75 PO; -LOSA50TA74 PO; +LOSA50TA80 PO; +NS(*) 0.9% 100 ML BAG 100 ML IVPB PRN; +NS(*) 0.9% 500 ML BAG 500 ML IV PRN; +WATER FOR INJ,STERILE 20 ML IVP PRN
[2018-12-04 08:30] VITALS: BP 146/83
[2018-12-04] MEDS: HEPARIN FLSH (PORT) 500 UN/5ML IVP PRN (08:35)
[2018-12-04] MEDS: LIDOCAINE/SOD BICARB 8.4% SYR ID PRN (08:35)
[2018-12-18] MEDS ORDERED: LOSA100T75 PO (14:06)
[2018-12-26] MEDS ORDERED: ALLO-119 PO (10:41)
== END 2019-01-04 ==
LOC: SPU 08:00
PROVIDERS: ATTEND Internal Medicine Hematology
DX: C18.0 Malignant neoplasm of cecum (principal); D12.6 Benign neoplasm of colon, unspecified; Z92.21 Personal history of antineoplastic chemotherapy; N28.1 Cyst of kidney, acquired; I10 Essential (primary) hypertension; M10.9 Gout, unspecified; H40.9 Unspecified glaucoma; Z79.899 Other long term (current) drug therapy
CPT/HCPCS: 36591; 82378; 85025; 96523; G0463; J1642; 82040; 82247; 82310; 82374; 82435; 82565; 82947; 84075; 84132; 84155; 84295; 84450; 84460; 84520; 99212

== ENCOUNTER 2019-03-24 08:00 | Outpatient (RCR) | payer MEDICARE, OTHER ==
[2015-03-16 17:08] VITALS: BMI 23.2
[2019-01-06 09:07] VITALS: BP 114/72
[2019-01-06] MEDS: HEPARIN FLSH (PORT) 500 UN/5ML IVP PRN (09:15)
[2019-01-06] MEDS: LIDOCAINE/SOD BICARB 8.4% SYR ID PRN (09:15)
[2019-01-20 09:15] VITALS: BP 156/87
[2019-01-20] MEDS: HEPARIN FLSH (PORT) 500 UN/5ML IVP PRN (09:32)
[2019-01-20] MEDS: LIDOCAINE/SOD BICARB 8.4% SYR ID PRN (09:33)
[2019-01-20 09:34] LABS: PLATELET COUNT, AUTOMATED 106 K/uL (150-450)
[2019-01-23 13:44] VITALS: BP 148/83
--- NOTE | 2019-01-23 20:53 | [facility] ONCOLOGY NOTE ---
EVENT DATE: January 23, 2019 DIAGNOSES 1. 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 2. Complex cysts of both kidneys. 3. Hypertension. 4. Gout. 5. Glaucoma. CHIEF COMPLAINT Patient is here today for followup of his metastatic colon cancer. ONCOLOGY HISTORY The patient is a 73-year-old male. The patient is doing fine currently. He has gained some weight. He still has sweating. He has also cough and runny nose, and he has hiccups lately. The patient has been evaluated at the [facility] for his recurrent colon cancer, and he is under evaluation currently. He was found to have a mass in the pancreas lately, and the patient is going to have EUS for that mass soon as well as repeat MRI and biopsy of the liver with marker placement. PRESENTATION Abnormal screening colonoscopy done by Dr. Damon, who found a large tumor in the right colon suggestive of malignancy. PROCEDURE Right hemicolectomy done on March 15, 2015. PATHOLOGY Positive for invasive, moderately differentiated colonic adenocarcinoma. Fifteen lymph nodes were negative for metastasis. Immunostaining for microsatellite instability with PMS2, MSH2, MSH6, and MLH1 all came back positive. Oncotype DX colon cancer assay showed a recurrence score result of 22. STAGING WORKUP 1. CT of abdomen and pelvis with contrast done on March 09, 2015, showed markedly thickened cecum and ascending colon with irregularity consistent with colon cancer. There were small, shotty retroperitoneal lymph nodes present. Bilateral renal cysts in addition to bilateral complex masses in both kidneys. 2. MRI of the abdomen with/without contrast done March 10, 2015, showed complex mass lower pole of right kidney, consistent with Bosniak type III cyst. Another complex in the lower pole of the left kidney represented a Bosniak type III cyst. There was a large mass involving the cecum extending into the approximate ascending colon, consistent with history of colon cancer. TREATMENT The patient started chemotherapy with FOLFOX pending surgery on July 23, 2016. The patient had en bloc partial hepatectomy with intraoperative ultrasound and microwave ablation on October 22, 2016, and pathology came back positive for the segment for hepatic resection for adenocarcinoma of the colon. The patient started adjuvant chemotherapy with FOLFOX chemotherapy on December 25, 2016. The patient completed four courses of adjuvant chemotherapy with FOLFOX on February 06, 2017. HISTORY OF PRESENT ILLNESS Patient is here today for followup of his recurrent metastatic colon cancer. He is doing fine currently. Apart from having diarrhea, especially in the morning, patient does not have any other complaints, and he is doing very well. PAST MEDICAL HISTORY 1. Colon cancer. 2. Hypertension. 3. Gout. 4. Glaucoma. PAST SURGICAL HISTORY 1. Multiple eye surgeries for glaucoma. 2. Tonsillectomy. 3. Right hemicolectomy done on March 15, 2015. 4. En bloc partial hepatectomy with intraoperative ultrasound and microwave ablation done on October 22, 2016. SOCIAL HISTORY The patient is . He has two sons. He is retired. Denies any abuse of tobacco, alcohol, or drugs. FAMILY HISTORY Maternal aunt had breast cancer in her late 60s. Maternal cousin had small-cell lung cancer. CURRENT MEDICATIONS 1. Multivitamins one tablet daily. 2. Betimol eye drops daily. 3. Lumigan 2.5 mL drops at bedtime. 4. Hyzaar 50/12.5 mg tablet daily. 5. Allopurinol 300 mg daily. 6. Cardura 4 mg at bedtime. 7. Verapamil SR 240 mg daily. ALLERGIES No known drug allergies. REVIEW OF SYSTEMS CONSTITUTIONAL: No appetite or weight change. No fever, chills, or sweating. No recent infection. HEENT: Ears: No tinnitus or hearing problem. Nose: No nasal discharge or epistaxis. Throat: No sore throat or mouth ulcers. Eyes: No diplopia or visual changes. RESPIRATORY: No shortness of breath. No cough, expectoration, or hemoptysis. CARDIOVASCULAR: No chest pain, orthopnea, or paroxysmal nocturnal dyspnea (PND). No edema. No palpitations. GASTROINTESTINAL: No nausea or vomiting. Patient has occasional diarrhea, especially in the morning. No constipation. No change in bowel movements. No heartburn or swallowing difficulties. No abdominal pain. No jaundice. No hematemesis, melena, or rectal bleeding. GENITOURINARY: No hematuria or dysuria. MUSCULOSKELETAL: No pain in the muscles, joints, or bones. NEUROLOGICAL: No tingling or numbness in the hands or feet. No headaches or convulsions. HEMATOLOGIC/LYMPHATIC: No bleeding or easy bruising. No weakness or fatigue. No enlarged lymph nodes. SKIN: No skin rash or lumps. PSYCHIATRIC: No anxiety or depression. PHYSICAL EXAMINATION GENERAL: Looks stable. Well developed, well nourished, and in no acute distress. VITAL SIGNS: Blood pressure 148/83, pulse 55 per minute, respirations 16 per minute, temperature 96.9, pulse ox 97% on room air. HEENT: Head: Atraumatic. No sinus tenderness to palpation. Eyes: No icterus or conjunctivitis. Mouth and throat: No oral thrush or mucositis. NECK: Supple. No cervical or supraclavicular lymphadenopathy. LUNGS: Clear to auscultation and percussion bilaterally. HEART: Regular rate and rhythm. No gallops, murmurs, clicks, or rubs. ABDOMEN: Soft and lax. No tenderness. No hepatosplenomegaly. No masses. EXTREMITIES: No cyanosis, clubbing, or edema. LYMPHATICS: No peripheral lymphadenopathy. NEUROLOGICAL: Conscious, alert, and oriented times three. No focal motor or sensory deficits. PSYCHIATRIC: Mood and affect appear normal. SKIN: No skin rash, bruise, or purpuric eruption. DIAGNOSTIC DATA CBC showed white count 4.3, hemoglobin 13.8, hematocrit 40.1, platelets 106,000. Chem panel totally normal except chloride 110, BUN 22, blood sugar 118. CEA is 3.4, which is up from 3. ASSESSMENT 1. Recurrent cecal adenocarcinoma. Patient was initially diagnosed with stage II (T3 N0 M0) cecal adenocarcinoma, status post right hemicolectomy March 15, 2015, with negative lymph nodes for metastasis. Oncotype DX testing at that time showed a recurrence score of 22, and patient decided not to receive adjuvant chemotherapy. His CEA during his surveillance increased from 2.3 to 5.3, and PET/CT scan done June 06, 2017, showed 1.3 cm hypodense, hypermetabolic lesion in the anterior aspect of the right hepatic lobe concerning for metastasis. There was a small hypermetabolic focus in the left hilum suspicious for lymphadenopathy which could be reactive. There was a 1.5 cm hypodense nodule in the left thyroid with SUV 2.8. Patient had partial hepatectomy with intraoperative ultrasound microwave ablation done October 22, 2016. Segment 4 of the hepatic resection did reveal the presence of adenocarcinoma consistent with colonic primary. Patient received four cycles of adjuvant chemotherapy with FOLFOX between December 10, 2016, through February 05, 2017. His CEA response was evident from his treatment. CEA dropped from 5.4 to 2.6. His CEA giovana to 4.6, and MRI of the abdomen showed stable suspicious lesion in the right lobe of liver. Repeat MRI March 31, 2018, showed stable MRI of the abdomen and pelvis, and his CEA dropped from 4.6 to 2.9, and currently, it is 3.4, up from 3. Patient had a colonoscopy May 30, 2018, and four polyps were removed, one from the transverse colon, one from splenic flexure, one from the rectum, and all are were tubular adenoma, while the fourth polyp was removed from the rectum and was a hyperplastic polyp. Patient is doing fine currently. His general condition is stable. I am planning to continue followup. I will see him again in three months with CBC, chemistry panel, and CEA. 2. Chemotherapy-induced thrombocytopenia. Current platelet count 106,000. I am planning to continue to monitor. 3. Gout, on treatment. PLAN 1. Continue followup. 2. Patient to return in three months with CBC, chem panel, and CEA. 3. Patient to contact us for any new concerns or complaints. STEFAND
[2019-02-17] MEDS: HEPARIN FLSH (PORT) 500 UN/5ML IVP PRN (08:20)
[2019-02-17] MEDS: LIDOCAINE/SOD BICARB 8.4% SYR ID PRN (08:20)
[2019-03-24 08:12] VITALS: BP 139/83
[2019-03-24] MEDS: LIDOCAINE/SOD BICARB 8.4% SYR ID PRN (08:15)
[2019-03-24] MEDS: HEPARIN FLSH (PORT) 500 UN/5ML IVP PRN (08:15)
[2019-04-02] MEDS ORDERED: FLUT16SP19 (14:32)
== END 2019-04-05 ==
LOC: SPU 08:00
PROVIDERS: ATTEND Internal Medicine Hematology
DX: C18.0 Malignant neoplasm of cecum (principal); D12.6 Benign neoplasm of colon, unspecified; C78.7 Secondary malignant neoplasm of liver and intrahepatic bile duct
CPT/HCPCS: 36591; 82378; 85025; 96523; G0463; J1642; 82040; 82247; 82310; 82374; 82435; 82565; 82947; 84075; 84132; 84155; 84295; 84450; 84460; 84520; 99212

== ENCOUNTER → 2019-03-26 | Outpatient (CLI) | payer MEDICARE, OTHER ==
[2015-03-16 17:08] VITALS: BMI 23.2
[~2019-03-26] MED LIST changes: -ALTEPLASE RECOMB 2 MG VIAL IVP PRN; -DEXTROSE 5%(*) 100 ML BAG 100 ML IVPB PRN; -NS(*) 0.9% 100 ML BAG 100 ML IVPB PRN; -NS(*) 0.9% 500 ML BAG 500 ML IV PRN; -WATER FOR INJ,STERILE 20 ML IVP PRN
== END ==
LOC: LAB 10:27
PROVIDERS: ATTEND Urology
DX: R97.20 Elevated prostate specific antigen [PSA] (principal)
CPT/HCPCS: 36415; 84154

== ENCOUNTER → 2019-04-08 | Outpatient (CLI) | payer MEDICARE, OTHER ==
[2015-03-16 17:08] VITALS: BMI 23.2
[~2019-04-08] MED LIST changes: +CIPR-214 PO
== END ==
LOC: LAB 08:10
PROVIDERS: ATTEND Urology
DX: Z02.9 Encounter for administrative examinations, unspecified (principal)

== ENCOUNTER → 2019-04-08 | Outpatient (CLI) | payer MEDICARE, OTHER ==
[2015-03-16 17:08] VITALS: BMI 23.2
[2019-04-08 08:38] LABS: INR 1.06
== END ==
LOC: LAB 08:09
PROVIDERS: ATTEND Internal Medicine
DX: Z01.818 Encounter for other preprocedural examination (principal); I10 Essential (primary) hypertension
CPT/HCPCS: 36415; 82040; 82247; 82248; 82310; 82374; 82435; 82565; 82947; 84075; 84132; 84155; 84295; 84450; 84460; 84520; 85610; 85730

== ENCOUNTER → 2019-04-08 | Outpatient (CLI) | payer MEDICARE, OTHER ==
[2015-03-16 17:08] VITALS: BMI 23.2
--- NOTE | 2019-04-08 10:34 | EKG ---
FACILITY: [facility] - [place] PATIENT NAME: RUBENS COURTNEY : [id number] MR: [id number] V: [id number] EXAM DATE: ORDERING PHYSICIAN: RAY GRIMM TECHNOLOGIST: SHARATH Miranda Reason : PRE-OP Blood Pressure : / mmHG Vent. Rate : 047 BPM Atrial Rate : 047 BPM P-R Int : 212 ms QRS Dur : 160 ms QT Int : 484 ms P-R-T Axes : 039 -17 -03 degrees QTc Int : 428 ms Sinus bradycardia with 1st degree AV block Right bundle branch block Abnormal ECG When compared with ECG of 04-FEB-2018 15:32, No significant change was found Confirmed by RAY GRIMM ([id number]) on 04/08/2019 2:42:19 PM Referred By: FRAN Confirmed By:RAY GRIMM
== END ==
LOC: RESP 10:15
PROVIDERS: ATTEND Internal Medicine
DX: Z02.9 Encounter for administrative examinations, unspecified (principal)

== ENCOUNTER 2019-04-09 00:53 | Day surgery (SDC) | payer MEDICARE, OTHER ==
[2015-03-16 17:08] VITALS: Ht 177.8 cm; Wt 80.3 kg
[~2019-04-09] VITALS: Ht 177.8 cm; Wt 80.3 kg
[2019-04-09] MEDS ORDERED: cefTRIAXone(*) 1 GM VIAL 1 GM in NS(*) 0.9% 100 ML MINI-BAG 100 ML IVPB ONE (08:30)
[2019-04-09] MEDS ORDERED: LIDOCAINE/SOD BICARB 8.4% SYR ID ONE (12:45)
[2019-04-09] MEDS ORDERED: NORMOSOL R SOLN(*) 1000 ML BAG 1,000 ML IV PRN (12:45)
[2019-04-09] MEDS ORDERED: FAMOTIDINE 20 MG TAB PO ONE (12:45)
[2019-04-09] MEDS ORDERED: MIDAZOLAM 2 MG/2 ML VIAL IVP PRN (12:45)
[2019-04-09 13:04] VITALS: BP 175/90
[2019-04-09] MEDS ORDERED: BUPIVACAIN 0.25% INJ 50ML VIAL ONE (13:58)
--- NOTE | 2019-04-09 14:46 | Urology Discharge Summary ---
Discharge Summary Reason for Hosp/Final Diag: (1) Elevated PSA Status: Chronic Departure Weight (Pounds): 177 Weight (Ounces): 4.0 Condition: No Change Time Spent: < 30 min Discharge Instructions Home Meds Active Scripts Fluticasone Prop 50 Mcg Ns (FLONASE 50 MCG NS) 16 Gm [place].susp, 2 SPRAYS NA QDAY for 30 Days, #3 BOT 3 Refills Prov:RAY GRIMM MD 04/02/19 Potassium Chloride (Potassium Chloride) 20 Meq Tablet.er, 20 MEQ PO QDAY, #1 TAB Prov:RAY GRIMM MD 03/13/19 Losartan Potassium (LOSARTAN POTASSIUM) 100 Mg Tablet, 100 MG PO QDAY, #90 TAB 3 Refills Prov:RAY GRIMM MD 12/18/18 Triamterene/Hydrochlorothiazid (TRIAMTERENE-HCTZ 37.5-25 MG CP) 1 Each Capsule, 1 EACH PO QDAY, #90 CAPSULE 3 Refills Prov:RAY GRIMM MD 11/24/18 Allopurinol (ZYLOPRIM) 300 Mg Tablet, 300 MG PO QDAY, #90 TAB 3 Refills TAKE 1 TABLET BY MOUTH EVERY DAY Prov:RAY GRIMM MD 09/18/18 Reported Medications Doxazosin Mesylate (DOXAZOSIN MESYLATE) 8 Mg Tablet, 0.5 TAB PO QDAY 09/24/18 Prednisolone Acetate (PREDNISOLONE ACETATE) 5 Ml Drops.susp, 1 DROP OP TID 11/13/17 Oxygen (OXYGEN) Inha, 2 L INH HS, L 05/16/17 Timolol Maleate/Pf (TIMOPTIC 0.25% OCUDOSE DROP) 1 Each Droperette, 1 EACH OP Left eye only 05/16/17 Bimatoprost (LUMIGAN) 2.5 Ml Drops, 2.5 ML OP QHS 03/02/15 Diet: Regular Activity: As Tolerated Venous Thromboembolism Antithrombotics Is Pt On Any Antithrombotics?: No Prophylaxis Tx Contraindicated Mechanical Contraindications: Surgical Contraindication KENAN PETERS MD April 09, 2019 14:46
--- NOTE | 2019-04-09 15:25 | NUR ---
PT. GIVEN ORANGE JUICE PER REQUEST.
[2019-04-09 15:30] VITALS: BP 165/80
[2019-04-09 15:32] VITALS: BP 157/86
--- NOTE | 2019-04-09 17:04 | OPERATIVE REPORT 1 ---
EVENT DATE: April 09, 2019 SURGEON: Mode Cleveland MD ANESTHESIOLOGIST: Tommy Osborn MD ANESTHESIA: LMA general. INTEGRATION ARCHITECT: None. PREOPERATIVE DIAGNOSIS Elevated PSA. POSTOPERATIVE DIAGNOSIS Elevated PSA. PROCEDURE PERFORMED Transrectal ultrasound-guided biopsy of the prostate. DESCRIPTION OF PROCEDURE Patient was brought to the operating room, and after the adequate induction of general anesthesia, he was placed in the dorsal lithotomy position. The transrectal ultrasound probe was placed, and the prostate was imaged in transverse and sagittal dimension. The estimated glandular volume was 39 cc. A prostatic block of 0.25% plain Marcaine was placed bilaterally, and then 12 cores were obtained from the prostate with attention to the peripheral zone. At the end of the procedure, the probe was removed. He was aroused from anesthesia and then transported to PACU in stable condition. BREANNA
== END 2019-04-09 15:18 | disposition home or self-care (01) ==
LOC: OR 00:53
PROVIDERS: ATTEND Urology
DX: R97.20 Elevated prostate specific antigen [PSA] (principal); I10 Essential (primary) hypertension; E78.5 Hyperlipidemia, unspecified
CPT/HCPCS: 36416; 55700; 82948; 88305; 88344; A9270; J0696; J2250; J3490

== ENCOUNTER → 2019-05-25 | Outpatient (CLI) | payer MEDICARE, OTHER ==
[2015-03-16 17:08] VITALS: BMI 23.2
[~2019-05-25] MED LIST changes: +GADOBENATE 529MG/1ML 15ML VIAL IVP ONE; +NS(*) 0.9% 50 ML BAG 50 ML ONE
--- NOTE | 2019-05-25 11:52 | RADIOLOGY IMAGING REPORT ---
FACILITY: [facility] [place]IENT NAME: Paulie Oakes : 1945 MR: [id number] V: [id number] EXAM DATE: ORDERING PHYSICIAN: ANTONIO ROBLERO TECHNOLOGIST: Location: [facility] Patient: Paulie Oakes : 1945 Visit/Account:[id number] Date of Sevice: 05/25/2019 MR ABDOMEN W & W/O CON HISTORY: Colon cancer restaging, abnormal PET/CT TECHNIQUE: Multiplanar multisequence magnetic resonance imaging of the abdomen with and without intr avenous contrast. CONTRAST: 15 cc of MultiHance COMPARISON: PET CT 05/11/2018, MRI 03/31/2018 as well as numerous prior exams FINDINGS: Liver: Measures 11.9 cm craniocaudal length. Reidentified are some postoperative changes anteriorly segment 4A of the liver. Subtle 2.3 x 2.3 cm enhancing mass segment 8 of the liver () adjacent to the IVC and middle hepa tic vein is concerning for metastatic lesion. This lesion is subtly hyperintense on T2, demonstrates restricted diffusion and enhances. In addition, this lesion corresponds to the PET/CT abnormality. Reidentified is a stable enhancing lesion segment 8 of liver measuring 2.8 x 3.5 cm () . This l esion is stable from numerous prior examinations and demonstrates no focal FDG uptake on comparison P ET/CT. Gallbladder and bile ducts: Gallbladder is absent The common bile duct measures 4 mm. Spleen: Normal in signal intensity measures 10.8 cm in length Adrenal glands: Negative. Pancreas: Negative. Kidneys: Reidentified are several benign simple renal cortical cysts. In the lower pole left kidney, there is a stable 2.5 x 1.2 cm complex cyst (2/). This lesion is stable from numerous prior exams . In the lower pole right kidney, is a stable 1.5 cm complex 6 (/) seen. Vessels: Atherosclerotic disease is noted in the aorta Bowel/peritoneum/mesentery: Patient has had prior right hemicolectomy Lymph nodes: Negative Bones/soft tissues: Negative Visualized lung bases: Negative Visualized pelvis: Negative Other findings: None significant IMPRESSION: 1. Subtle 2.8 cm lesion segment 8 of liver () concerning for a metastatic lesion. This lesion is adjacent to the IVC and middle hepatic vein and corresponds to the recent PET/CT abnormality. 2. Stable 3.5 cm enhancing lesion segment 8 of liver unchanged from numerous prior examinations and has no focal FDG uptake. 3. Stable complex renal lesions in the lower poles bilaterally unchanged from numerous prior exams. Report Dictated By: Henry Eddy MD at 05/25/2019 11:17 AM Report E-Signed By: Henry Eddy MD at 05/25/2019 11:45 AM WSN:[id number]
== END ==
LOC: MRI 06:57
PROVIDERS: ATTEND Internal Medicine Hematology
DX: R93.2 Abnormal findings on diagnostic imaging of liver and biliary tract (principal); Z85.038 Personal history of other malignant neoplasm of large intestine; N28.89 Other specified disorders of kidney and ureter
CPT/HCPCS: 74183; A9577; J7050